=== PATIENT | female | born 1965 | race Caucasian/White ===

== ENCOUNTER 2021-04-30 13:39 | Outpatient (REF) | payer MEDICAID, SELFPAY ==
--- NOTE | ~2021-04-30 | XR_ITS ---
EXAMINATION: XR SHOULDER, LEFT CLINICAL INFORMATION: Cervical radiculopathy. COMPARISON: None TECHNIQUE: AP external rotation, Grashey, scapular Y, and axillary views of the left shoulder. FINDINGS: Small acromioclavicular marginal osteophytes. No glenohumeral joint space narrowing or marginal osteophytes. No osseous erosion. No fracture or dislocation. No abnormal soft tissue calcification. XR/XR shoulder LT min 2V IMPRESSION: Mild acromioclavicular osteoarthritis.
== END 2021-04-30 13:40 | disposition home or self-care (01) ==
LOC: HO.XRAY 13:39
PROVIDERS: PCP Family Medicine; Visit Provider Physical Medicine & Rehabilitation
DX: M47.812 Spondylosis without myelopathy or radiculopathy, cervical region (principal)
CPT/HCPCS: 73030

== ENCOUNTER 2021-07-12 10:16 | Emergency (ER) | payer MEDICAID, SELFPAY ==
--- NOTE | ~2021-07-12 | XR_ITS ---
EXAMINATION: XR FOOT, RIGHT CLINICAL INFORMATION: Pain COMPARISON: None TECHNIQUE: AP, lateral, and oblique views of the right foot. FINDINGS: There is fine transverse lucency suggested at base metatarsal. This would be be correlated with patient's symptoms and clinical exam to help differentiate pain nondisplaced hairline fracture versus accentuated trabecular marking. Otherwise, there is no fracture or dislocation. Degenerative changes involving the first MTP joint with joint narrowing and mild subchondral sclerosis and spurring. There is no erosive change. There is borderline plantar calcaneal spur. XR/XR foot RT 2V IMPRESSION: 1. Accentuated trabecular markings versus faint hairline fracture base fifth metatarsal. Recommend correlation with patient's symptoms and clinical exam. 2. Otherwise no fracture or dislocation. 3. Osteoarthritis first MTP.
[2021-07-12 10:23] VITALS: BP 116/92; PULSE 109; RESP 18; TEMP 36.2; O2SAT 98; BMI 25.8
--- NOTE | 2021-07-12 11:02 | ED_ITS ---
HPI - Extremity Problem General Chief complaint: Extremity Problem Stated complaint: rt foot pain Time Seen by Provider: 07/12/21 10:59 Source: patient Mode of arrival: ambulatory Limitations: no limitations History of Present Illness HPI Narrative: 56 y/o female presenting with right foot pain after she missed the last step outside of her home last night. She reports immediate pain to the outside of her right foot, unable to walk on it. She tried to rest and go to bed but the pain woke her up at 1am. She reports the pain worsened all night long and when she tried to get up and walk she couldn't. She noticed swelling to her foot and some slight bruising. She is not on blood thinners. She denies ankle or knee injury. MD Complaint: joint swelling and joint paint Onset (ago): day(s) (1) Pain Consistency: constant Location: right and lower extremity Severity scale (1-10): >10 Quality: stabbing and aching Radiation: proximal Relieving factors: immobilization Exacerbating factors: range of motion, weight bearing and palpation Associated symptoms: denies other symptoms Related Data Previous Rx's Medication Instructions Recorded hydrocodone 5 mg-acetaminophen 325 1 tab PO Q4-6H PRN #8 tab 07/12/21 mg tablet ibuprofen 600 mg tablet 600 mg PO Q8H PRN #20 tab 07/12/21 Allergies Allergy/AdvReac Type Severity Reaction Status Date / Time bee pollen [BEE STINGS] Allergy Mild SWELLING Verified 07/12/21 10:25 Review of Systems Review of Systems: Constitutional: No Fever, No Chills Gastrointestinal: No Nausea, No Vomiting Musculoskeletal: + joint pain, No Myalgias Skin: No Skin Lesions, No rash Neuro: No Weakness, No Numbness Psych: + Anxiety/Panic Heme/Lymph: + Bruising, No Lymphadenopathy PMFSH Past Medical History Medical History (Updated 07/12/21 @ 11:44 by JORGE Pack) No known health problems Social History Social History Advance Directives: No Advance Directives Information Provided: Yes Physical Exam Vital Signs: Vital Signs: Last Vital Signs Temp 97.1 F 07/12/21 10:23 Pulse 109 H 07/12/21 10:23 Resp 18 07/12/21 10:23 BP 116/92 H 07/12/21 10:23 Pulse Ox 98 07/12/21 10:23 Body Mass Index 25.8 Appearance: Alert. Oriented X3. Appears uncomfortable. HEENT: normal inspection CVS: Normal heart rate and rhythm. Pulses normal. Respiratory: No respiratory distress. Skin: Skin warm and dry. Normal skin color. Normal skin turgor. No rashes. Extremities: right foot with moderate swelling to the foot over the 4th and 5th metatarsals with significant tenderness throughout, pain with plantarflexion and dorsiflexion, 2+ DP/PD pulses, warm and well perfused, slight ecchymossis to the lateral foot. mild swelling distal to the lateral malleolus, no malleolar tenderness, pain with ROM of the ankle joint Neuro: Oriented X 3. No motor deficit. No sensory deficit. Unable to assess gait due to pain Course Course Course Narrative: 56 y/o female presenting with right foot pain s/p fall off 1 step last night. Unable to bear weight due to pain with moderate swelling and significant tenderness on exam. XR showing possible hairline fracture at the base of the 5ht metatarsal. Will place in walking boot, provide crutches and have her follow up with Orthopedics. NSAID and Vicoden sent to pharmacy. She is stable for discharge with supportive care and outpatient follow up, patient agrees with plan. Discharge Plan Discharge Clinical Impression: Closed fracture of fifth metatarsal bone Qualifiers: Encounter type: initial encounter Fracture alignment: nondisplaced Laterality: right Qualified Code(s): S92.354A - Nondisplaced fracture of fifth metatarsal bone, right foot, initial encounter for closed fracture Patient Disposition: Home, Self-Care Instructions: Foot Fracture in Adults (ED) Additional Instructions: Your x-ray showed a possible hairline fracture in your foot. Wear the walking boot when ambulating. Elevate your foot when possible. Use ice several times per day for the next 48 hours. You may bear weight as tolerated. If pain is too severe, use crutches until better. Take Motrin and/or Tylenol as needed for pain. Take the prescribed nacotic medication as needed for severe pain No driving Follow up with Orthopedics in 1 week. Prescriptions: New hydrocodone-acetaminophen 5-325 mg tablet 1 tab PO Q4-6H PRN (Reason: pain) Qty: 8 RF: 0 ibuprofen 600 mg tablet 600 mg PO Q8H PRN (Reason: pain) Qty: 20 RF: 0 Referrals: Menilo,Ta-Poppy, PA-C [[facility] [employer]] - 1 week (5th metatarsal fracture)
[2021-07-12] MEDS: HYDROcodone Bit/Acetam 5/325 TABLET 1 TAB PO (11:20)
== END 2021-07-12 11:52 | disposition home or self-care (01) ==
PROVIDERS: Emergency Provider Emergency Medicine; PCP Family Medicine
DX: S92.354A Nondisplaced fracture of fifth metatarsal bone, right foot, initial encounter for closed fracture (principal); M79.671 Pain in right foot; W01.0XXA Fall on same level from slipping, tripping and stumbling without subsequent striking against object, initial encounter; Y93.9 Activity, unspecified; Y92.9 Unspecified place or not applicable; Y99.9 Unspecified external cause status; Z79.899 Other long term (current) drug therapy
CPT/HCPCS: 73620; 99283; 99284

== ENCOUNTER 2021-07-26 07:26 | Outpatient (REF) | payer MEDICAID, SELFPAY ==
--- NOTE | ~2021-07-26 | XR_ITS ---
EXAMINATION: XR FOOT, RIGHT CLINICAL INFORMATION: Foot pain. COMPARISON: 07/12/2021 TECHNIQUE: AP, lateral, and oblique views of the right foot. FINDINGS: Marked degenerative changes present at the 1st metatarsophalangeal joint with loss of joint space, sclerosis, osteophyte formation, and some mild subchondral cyst formation. At the time of the prior study, there was a questionable fracture at the base of the 5th metatarsal. These findings are less apparent on the current study, and there is no evidence of a periosteal reaction which would be indicative of fracture healing. I suspect that this finding may represent accentuated trabecular suspected previously. No other significant abnormalities are seen. XR/XR foot RT min 3V IMPRESSION: Degenerative changes 1st metatarsophalangeal joint. No convincing evidence of an evolving fracture at the base of the 5th metatarsal.
== END 2021-07-26 07:27 | disposition home or self-care (01) ==
LOC: HO.HOSX 07:26
PROVIDERS: Visit Provider Physician Assistant
DX: S92.301A Fracture of unspecified metatarsal bone(s), right foot, initial encounter for closed fracture (principal)
CPT/HCPCS: 73630; 99202

== ENCOUNTER 2021-08-26 07:15 | Outpatient (REF) | payer MEDICAID, SELFPAY ==
--- NOTE | ~2021-08-26 | XR_ITS ---
EXAMINATION: XR FOOT, RIGHT CLINICAL INFORMATION: Pain COMPARISON: Previous x-ray, most recent 07/26/2021 TECHNIQUE: AP, lateral, and oblique views of the right foot. FINDINGS: There are lucencies in the base of the fifth metatarsal bone again questionable for nondisplaced fracture. No other fracture is seen. There is arthritis at the first MTP joint. Joint spaces are otherwise normal. There is a small plantar calcaneal spur. XR/XR foot RT min 3V IMPRESSION: Probable nondisplaced fracture of the base of the fifth metatarsal bone.
== END 2021-08-26 07:16 | disposition home or self-care (01) ==
LOC: HO.HOSX 07:15
PROVIDERS: Visit Provider Physician Assistant
DX: S92.301D Fracture of unspecified metatarsal bone(s), right foot, subsequent encounter for fracture with routine healing (principal)
CPT/HCPCS: 73630; 99212

== ENCOUNTER 2023-02-28 11:25 | Inpatient (IN) | payer OTHER, SELFPAY ==
--- NOTE | ~2023-02-28 | XR_ITS ---
EXAMINATION: XR CHEST CLINICAL INFORMATION: Pain. COMPARISON: None available. TECHNIQUE: Frontal view of the chest was obtained. FINDINGS: No significant abnormality is noted involving the heart, lungs, mediastinum, bony thorax or soft tissues. XR/XR chest 1V IMPRESSION: No acute cardiopulmonary process.
--- NOTE | ~2023-02-28 | XR_ITS ---
EXAMINATION: XR HIP, RIGHT CLINICAL INFORMATION: Pain status post fall. COMPARISON: None available. TECHNIQUE: Two views of the right hip. FINDINGS: Acute, nondisplaced fractures are seen of the right superior and inferior pubic rami. The right hip joint and right hip are intact. The left hemipelvis and left hip are intact. The soft tissues are unremarkable. XR/XR hip RT w PEL1V IMPRESSION: Acute, nondisplaced right superior and inferior pubic rami fractures.
[2023-02-28 11:41] VITALS: BP 140/88; BP 141/85; PULSE 107; PULSE 89; RESP 18; TEMP 36.2; O2SAT 100; BMI 26.8
--- NOTE | 2023-02-28 11:43 | ED.GENADULT ---
HPI - General Adult General Chief complaint: Fall Stated complaint: FALL W/R HIP PAIN WHILE DOING YARD WORK PER EMS Time Seen by Provider: 02/28/23 11:43 Source: patient and EMS Mode of arrival: EMS Limitations: no limitations History of Present Illness HPI narrative: Patient is a 57 year old assigned female at with no reported medical history presenting to the emergency department today with right hip pain. Patient states that she was doing work in her garden and jumped on a shovel, when she slid off and landed on her right hip. Patient states that she immediately had pain and was unable to move the right leg. Patient denies any head strike, loss of consciousness, dizziness, lightheadedness, abdominal pain, nausea, vomiting, fever, chills, blurry vision, double vision, loss of vision, chest pain, difficulty breathing, shortness of breath, back pain, night sweats, pain with urination, increased urinary frequency, increased urinary urgency, blood in her urine or stool, syncope or a near syncopal episode, bowel incontinence, bladder incontinence, bowel retention, bladder retention, or any other complaints at this time. Onset (ago): minute(s) Location: pelvis and right Radiation: non-radiation Severity: moderate Severity scale (1-10): 5 Quality: aching and constant Pain Consistency: constant Relieving factors: none Exacerbating factors: none Associated symptoms: denies other symptoms Treatments prior to arrival: none Related Data Home Medications Medication Instructions Recorded Confirmed buspirone 15 mg tablet 15 mg PO BID 02/28/23 chlorzoxazone 500 mg tablet 500 mg PO TID PRN headache 02/28/23 duloxetine 30 mg capsule,delayed 30 mg PO DAILY 02/28/23 release duloxetine 60 mg capsule,delayed 60 mg PO DAILY 02/28/23 release lorazepam 0.5 mg tablet 0.5 mg PO BID PRN anxiety 02/28/23 omeprazole 20 mg capsule,delayed 20 mg PO DAILY 02/28/23 release tizanidine 2 mg tablet 2 mg PO BEDTIME 02/28/23 tizanidine 4 mg tablet 4 mg PO BEDTIME PRN Muscle Spasm 02/28/23 topiramate 25 mg tablet 100 mg PO BEDTIME 02/28/23 Allergies Allergy/AdvReac Type Severity Reaction Status Date / Time bee pollen [BEE STINGS] Allergy Mild SWELLING Verified 08/26/21 10:47 Review of Systems Constitutional: Constitutional: Reports no additional constitutional complaints, Denies chills, Denies fever(s) and Denies night sweats Eyes: Eyes: Reports no additional eye complaints, Denies blurry vision, Denies change in vision, Denies diplopia, Denies eye discharge, Denies loss of vision and Denies eye pain ENT: Denies dizziness Cardiovascular: Cardiovascular: Reports no additional cardiovascular complaints, Denies chest pain, Denies lightheadedness, Denies Loss of Consciousness and Denies dyspnea Respiratory: Respiratory: Reports no additional respiratory complaints and Denies dyspnea Gastrointestinal: Gastrointestinal: Reports no additional gastrointestinal complaints, Denies abdominal pain, Denies melena, Denies hematochezia, Denies change in bowel habits and Denies change in stool character Genitourinary: Genitourinary: Denies hematuria, Denies urinary frequency, Denies dysuria, Denies urinary incontinence, Denies urinary hesitancy and Denies urinary urgency Musculoskeletal: Musculoskeletal: Reports no additional musculoskeletal complaints, Denies numbness and Denies tingling Comments: right hip pain Neurologic: Denies dizziness, Denies loss of vision, Denies numbness and Denies tingling Psychiatric: Psychiatric: Reports no additional psychiatric complaints Endocrine: Endocrine: Reports no additional endocrine complaints Hematologic/Lymphatic: Hematologic/Lymphatic: Reports no additional hematologic/lymphatic complaints Allergic/Immunologic: Allergic/Immunologic: Reports no additional allergic/immunologic complaints PMFSH Past Medical History Attestation statement: The following information was validated with the patient. Source: old records reviewed and nursing notes reviewed Medical History No known health problems Social History Social History Advance Directives: No Current occupation: rt handed Physical Exam ED Vital Signs: Vital Signs - 24 hr 02/28/23 11:41 02/28/23 13:16 Temperature 97.1 F Pulse Rate 107 H 87 Respiratory Rate 18 16 Blood Pressure 140/88 H 114/76 Pulse Oximetry 99 Oxygen Delivery Method Room Air Room Air BMI result Body Mass Index 26.8 Const General: cooperative, no acute distress, alert and awake Nutritional Appearance: well nourished Orientation/consciousness: patient oriented x3 Limitations: no limitations HENMT Head: Yes normal to inspection and Yes atraumatic Ears: hearing grossly normal bilaterally and external ears normal General nose exam: Normal external nose present, no nasal discharge noted and no epistaxis Face and sinus: Yes normal facial exam, No abrasion and No laceration Mouth: Normal oral and palatal mucosa present, no drooling and no muffled voice Eyes General: appearance normal, both eyes and all related structures Periorbital: periorbital findings normal Eyelids: Yes eyelids normal Conjunctivae: conjunctivae normal Pupils: Equal, round and reactive pupils present EOM: EOMs intact bilaterally Neck Neck: Yes normal visual inspection, Yes full ROM and Yes no lymphadenopathy Chest Chest palpation & inspection: normal inspection of the chest Resp Effort & Inspection: normal respiratory effort and able to speak in complete sentences Auscultation: clear to auscultation bilaterally Cardio Rate: regular rate Rhythm: regular rhythm GI Inspection: Yes normal to inspection Back/Spine/Pelvis Other: pain with palpation of right side of pelvis Neuro General: patient oriented x3 and moves all extremities Cranial nerves: Yes Equal, round and reactive pupils present Cognition (Neuro): normal cognition Motor exam (neuro): 5/5 motor strength present throughout Sensory Exam: Normal double simultaneous stimulation for sensation Coordination: [id number] test normal Extrem General: Yes capillary refill normal Psych Appearance: grossly normal Mental Status: mental status grossly normal Affect: normal affect Attitude: cooperative Thought process: Normal thought process present Thought content: Normal thought content present Insight: Good insight present (Psych) Medications Administered Discontinued Medications Generic Name Dose Route Start Last Admin Trade Name Freq PRN Reason Stop Dose Admin Hydromorphone HCl 1 mg 02/28/23 11:48 02/28/23 12:07 Hydromorphone Hcl 1 Mg/Ml Syringe IVPUSH 02/28/23 11:49 1 mg ONCE ONE Administration Protocol Hydromorphone HCl 1 mg 02/28/23 12:56 02/28/23 13:14 Hydromorphone Hcl 1 Mg/Ml Syringe IVPUSH 02/28/23 12:57 1 mg ONCE ONE Administration Protocol Ondansetron HCl 4 mg 02/28/23 11:48 02/28/23 12:07 Ondansetron Hcl 4 Mg/2 Ml Vial IVPUSH 02/28/23 11:49 4 mg ONCE ONE Administration Medical Decision Making Medical Decision Making MDM Narrative: Patient is a 57 year old assigned female at with no reported medical history presenting to the emergency department today with right hip pain. Patient's physical exam showed pain with palpation of the right pelvis. Patient was given 180mcg of fentanyl prior to arrival and was still in a significant amount of pain when she arrived. I gave the patient 1mg of Dilaudid and the pain persisted. Patient got additional Dilaudid which helped some but the pain continues. Patient's blood work was unremarkable. Patient's right hip and pelvis x-ray showed and inferior and superior pubic rami fracture. I spoke to the orthopedic provider physician relations manager who recommended short term rehab, toe touch weight bearing, and follow up with orthopedics on an out patient basis. I spoke to the hospitalist team who agreed to admission for intractable pain. I explained my physical exam findings as well as all test results to the patient. I answered all questions asked by the patient. I stressed the importance of the patient taking her medication as prescribed. I stressed the importance of the patient following up with her primary care provider and an orthopedic provider. I stressed the importance of the patient returning to the emergency department immediately if her symptoms were to worsen or if she were to develop any dizziness, shortness of breath, difficulty breathing, chest pain, blurry vision, loss of vision, nausea, vomiting, abdominal pain, fever, chills, back pain, or any other complaints. Patient verbalized agreement and understanding with this treatment plan and admission for intractable pain with ultimate end goal of short term rehab. Differential Diagnosis Differential Diagnoses: The differential diagnosis associated with the presentation includes right pelvis fracture Admission/Observation Consideration of admission/observation: Escalation of care including admission/observation considered Consult Healthcare Provider Management of the patient was discussed with: Senior Art Director (spoke to the orthopedic provider as noted in the MDM portion of this chart) Lab Data [facility] Lab Attestation statement: I reviewed the patient's lab results. 02/28/23 12:02 02/28/23 12:02 Labs: Lab Results 02/28/23 02/28/23 02/28/23 Range/Units 12:02 12:02 12:02 WBC 8.4 (4.8-10.8) X10*3/uL RBC 4.86 (4.20-5.50) X10*6/uL Hgb 17.8 H (12.0-16.0) g/dl Hct 50.8 H (37.0-47.0) % MCV 104.5 H (80.0-98.0) fL MCH 36.6 H (27.0-33.0) pg MCHC 35.0 (31.0-35.0) g/dl RDW 13.5 (11.0-16.0) % Plt Count 226 (160-400) X10*3/uL MPV 9.4 (9.4-12.3) fL Immature Gran % (Auto) 0.8 H (0.0-0.4) % Neut % (Auto) 76.6 H (45-73) % Lymph % (Auto) 16.0 L (20-40) % [place] % (Auto) 5.6 (2-11) % Eos % (Auto) 0.5 (0-4) % Baso % (Auto) 0.5 (0-2) % Lymph # (Auto) 1.4 (1.2-4.9) X10*3/uL [place] # (Auto) 0.5 (0.1-1.2) X10*3/uL Eos # (Auto) 0.0 (0.0-0.4) X10*3/uL Baso # (Auto) 0.0 (0.0-0.2) X10*3/uL Abs Immat Gran (auto) 0.07 H (0.00-0.03) X10*3/uL Absolute Neuts (auto) 6.5 (2.0-8.3) x10*3/uL Absolute Nucleated RBC 0.000 (0.0-0.012) X10*3/uL Nucleated RBC % (auto) 0.0 (0.0-0.2) /100WBC PT 10.1 (10.0-13.1) SEC INR 0.9 (0.9-1.1) APTT 35.3 (26.0-36.4) SEC Sodium 140 (135-145) mmol/L Potassium 4.1 (3.3-5.1) mmol/L Chloride 106 (96-108) mmol/L Carbon Dioxide 24 (22-29) mmol/L Anion Gap 14 (12-20) BUN 6 L (9-16) mg/dL Creatinine 0.73 (0.5-1.4) mg/dL Estim Creat Clear Calc 99.8 Estimated GFR > 60 Random Glucose 94 (60-115) mg/dL Calcium 9.2 (8.4-10.2) mg/dL Magnesium 1.8 (1.6-2.6) mg/dL Total Bilirubin 0.8 (0.0-1.0) mg/dL AST 79 H (5-31) U/L ALT 58 H (0-31) U/L Alkaline Phosphatase 133 H (39-117) U/L Total Protein 6.3 L (6.5-8.0) g/dL Albumin 3.4 L (3.5-5.0) g/dL Independent Interpretation I performed an independent interpretation of an: Plain X-Ray Interpretation: My interpretation is in agreement with the radiologist's impression of these imaging studies. EXAMINATION: XR HIP, RIGHT CLINICAL INFORMATION: Pain status post fall. COMPARISON: None available. TECHNIQUE: Two views of the right hip. FINDINGS: Acute, nondisplaced fractures are seen of the right superior and inferior pubic rami. The right hip joint and right hip are intact. The left hemipelvis and left hip are intact. The soft tissues are unremarkable.? XR/XR hip RT w PEL1V IMPRESSION: Acute, nondisplaced right superior and inferior pubic rami fractures. Dictated By: Erik Flood MD Signed By: Electronically signed by Erik Flood MD 02/28/23 [id number] EXAMINATION: XR CHEST CLINICAL INFORMATION: Pain. COMPARISON: None available. TECHNIQUE: Frontal view of the chest was obtained. FINDINGS: No significant abnormality is noted involving the heart, lungs, mediastinum, bony thorax or soft tissues. XR/XR chest 1V IMPRESSION: No acute cardiopulmonary process. Dictated By: Erik Flood MD Signed By: Electronically signed by Erik Flood MD 02/28/23 [id number] Independent Historian Clinical information obtained from an independent historian. History obtained from or confirmed by: EMS Critical Care Time Critical Care Time Critical Care Time: Yes Total Critical Care Time: 45 Attestation: I spent 45 minutes of Critical Care Time with this patient. This does not include time spent on separately reported billable procedures. Discharge Plan Discharge Clinical Impression: Closed pelvic fracture, Intractable pain Patient Disposition: Admitted As Inpatient
--- NOTE | 2023-02-28 11:50 | PC.NURSE ---
Alert and oriented. Arrived from home via EMS. States she was digging up a hosta when she jumped on the shovel causing her to fall and land on her right hip. stated no loc and was on the ground for about 5 minutes before her neighbor found her. states she felt sudden onset of right hip and groin pain. received 180mcg of fent from ems and states no relief from medication. VSS. Moving to room 4
[2023-02-28 12:07] LABS: MANUAL DIFF FLAG NO
[2023-02-28] MEDS: ondansetron HCL 4 MG/2 ML VIAL IVPUSH (12:07)
[2023-02-28] MEDS: HYDROmorphone HCl 1 MG/ML SYRINGE IVPUSH ×5 (12:07→20:26)
[2023-02-28 12:11] LABS: Basophils Percent Auto 0.5 % (0-2); Eosinophils Percent Auto 0.5 % (0-4); Hematocrit 50.8 % (37.0-47.0); Hemoglobin 17.8 g/dl (12.0-16.0); Imm Gran Abs Auto 0.07 X10*3/uL (0.00-0.03); Imm Gran Pct Auto 0.8 % (0.0-0.4); Lymphocytes Absolute Auto 1.4 X10*3/uL (1.2-4.9); Mean Corpuscular Hemoglobin 36.6 pg (27.0-33.0); Mean Corpuscular Volume 104.5 fL (80.0-98.0); Mean Platelet Volume 9.4 fL (9.4-12.3); Monocytes Absolute Auto 0.5 X10*3/uL (0.1-1.2); Monocytes Percent Auto 5.6 % (2-11); Neutrophils Absolute Auto 6.5 x10*3/uL (2.0-8.3); Neutrophils Percent Auto 76.6 % (45-73); Platelet Count 226 X10*3/uL (160-400); Red Blood Count 4.86 X10*6/uL (4.20-5.50); Red Cell Distribution Width 13.5 % (11.0-16.0); White Blood Count 8.4 X10*3/uL (4.8-10.8)
[2023-02-28 12:16] LABS: INTERNATIONAL NORM RATIO 0.9 (0.9-1.1); Prothrombin Time 10.1 SEC (10.0-13.1)
[2023-02-28 12:19] LABS: Partial Thromboplastin Time 35.3 SEC (26.0-36.4)
[2023-02-28 13:02] LABS: Alanine Aminotransferase 58 U/L (0-31); Albumin Level 3.4 g/dL (3.5-5.0); Alkaline Phosphatase 133 U/L (39-117); Anion Gap 14 (12-20); Aspartate Amino Transferase 79 U/L (5-31); Bilirubin Total 0.8 mg/dL (0.0-1.0); Blood Urea Nitrogen 6 mg/dL (9-16); Calcium 9.2 mg/dL (8.4-10.2); Carbon Dioxide 24 mmol/L (22-29); Chloride 106 mmol/L (96-108); Creatinine Clr Calc Pharmacy 99.8; Estimated Glomerular Filt Rate > 60; Glucose Random 94 mg/dL (60-115); Magnesium 1.8 mg/dL (1.6-2.6); Potassium 4.1 mmol/L (3.3-5.1); Sodium 140 mmol/L (135-145); Total Protein 6.3 g/dL (6.5-8.0)
--- NOTE | 2023-02-28 13:11 | MHC.CM.ED ---
Received consult for assessment of d/c needs: Discussed w/ED provider: pt w/significant pain requiring increasing IV pain medication prior to and upon arrival to ED. Provider to admit pt for pain control so that pt may have PT eval and CM consult for ? rehab placement following a fx pelvis. CM consult deferred at this time
[2023-02-28 13:16] VITALS: BP 114/76; PULSE 87; RESP 16; O2SAT 99
[2023-02-28 13:39] VITALS: BP 116/76; PULSE 92; RESP 20; TEMP 37.1; O2SAT 99
--- NOTE | 2023-02-28 13:43 | PHA.MEDREC ---
Pharmacy Consult ? Medication Reconciliation Pharmacy has completed the medication reconciliation.
--- NOTE | 2023-02-28 14:07 | PM.IMHP ---
History of Present Illness Date of Service: 02/28/23 Attending physician on admission: Josie Veliz Chief Complaint: Right hip pain Pt is a 57-year-old female with a PMH significant for?migraines, anxiety, depression, recently diagnosed hiatal hernia, hx of fractured cervical vertebrae in 2019, and hx of meningioma s/p successful recection in 2019 who presents to the ED with?right hip pain after a mechanical fall earlier today. Pt states she was working in her lawn relocating [place] does that had spread up where they were not wanted. This will was dana and the patient found it difficult to shovel, so she decided to jump onto the shovel in order to better dinh the ground. Patient lost her balance and fell on her right hip. Patient immediately spirits to great deal of pain in her right hip and found she could not move her right leg. She did not have her phone on her so she had to wait until she could flag down a passerby who was able to call EMS. Patient has been in a great deal of pain in the ED and received 3 1 mg doses Dilaudid in 3 hours that barely touched her pain. Patient currently complaining of hip and groin pain that she rates a 9.5/10. Denies fever, chills, nausea, vomiting. No abdominal pain. Denies chest pain/pressure, palpitations. Denies shortness of breath. Currently denies numbness and tingling in extremities. No saddle anesthesia or loss of bowel or bladder function. Denies headache, vision changes. In the ED patient was afebrile but tachycardic at 107 and slightly hypertensive at 140/88. Labs were significant for H&H of 17.8/50, MCV 104.5, mild transaminitis of AST 79, ALT 58, alk-phos of 133. Electrolytes normal. Kidney function WNL. Coags WNL. CXR showed no acute cardiopulmonary process. Hip and pelvis x-ray found acute, nondisplaced right superior and inferior pubic rami fractures. Pt was treated with Dilaudid 1 mg IV x3 doses and ondasetron. Pt will be admitted to the hospital for intractable pain secondary to right pubic bone fractures. Review of Systems Review of Systems: Right hip and leg pain, rated 9.5/10 Denies numbness or tingling in extremities No saddle anaesthesia Denies loss of bowel or bladder function Denies chest pain/pressure, palpitations No shortness of breath Denies fever, chills, nausea, vomiting, diarrhea, abdominal pain Yes all other systems are reviewed and are negative [facility] Medical History No known health problems Social History Household Members: None Housing: House Do you presently have visiting nurse or other home services: No Patient Tobacco Use Status: Current everyday Tobacco user Tobacco use type: Cigarette Cigarette Packs Per Day: 0.5 Cigarettes Per Day: 10.0 Smoked in Last 30 Days: Yes Patient Interested in Nicotine Replacement: Yes Use of substances other than those prescribed or required for medical reasons: Yes Substance Use Type: Marijuana Substance Use Frequency: Occasionally Last Used Substance: Days (ago) Currently Displaying Signs/Symptoms of Drug Intoxication Withdrawal: No Any prior treatment program specific to substance use: No Have you been hit, kicked, punched, or otherwise hurt by someone within the past year? If so, by whom?: No Do you feel safe in your current relationship?: No Current Relationship Is there a partner from a previous relationship who is making you feel unsafe now?: No Are you made to feel afraid or neglected: No Advance Directives: No Do you have thoughts of harming others: None Do you have a plan to hurt others: No Plan Recently lost weight without trying: Yes How much weight loss: 34pounds or more Eating poorly because of decreased appetite: Yes Nutrition screen score: 7 Nutrition Risks: No Nutritional Risk Patient : No : No Poor oral hygiene: No Current occupation: rt handed Meds Allergies Allergy/AdvReac Type Severity Reaction Status Date / Time bee pollen [BEE STINGS] Allergy Mild SWELLING Verified 08/26/21 10:47 Active Medications: Current Medications Pharmacy Consult (Consult Rx Perform Med Rec) 1 each MISCELLANE ONCE PRN PRN Reason: Consult order Home Medications Medication Instructions Recorded Confirmed Last Taken Type buspirone 15 mg tablet 15 mg PO BID 02/28/23 02/28/23 02/27/23 History chlorzoxazone 500 mg tablet 500 mg PO TID PRN headache 02/28/23 02/28/23 02/27/23 History duloxetine 30 mg capsule,delayed 30 mg PO DAILY 02/28/23 02/28/23 02/27/23 History release duloxetine 60 mg capsule,delayed 60 mg PO DAILY 02/28/23 02/28/23 02/27/23 History release lorazepam 0.5 mg tablet 0.5 mg PO BID PRN anxiety 02/28/23 02/28/23 02/27/23 History omeprazole 20 mg capsule,delayed 20 mg PO DAILY 02/28/23 02/28/23 02/27/23 History release tizanidine 2 mg tablet 2 mg PO BEDTIME 02/28/23 02/28/23 02/27/23 History tizanidine 4 mg tablet 4 mg PO BEDTIME PRN Muscle Spasm 02/28/23 02/28/23 02/27/23 History topiramate 25 mg tablet 50 mg PO BEDTIME 02/28/23 02/28/23 02/27/23 History trazodone 100 mg tablet 100 mg PO BEDTIME PRN Insomnia 02/28/23 02/28/23 02/27/23 History Physical Exam Vital Signs and Narrative: Vital Signs: Last Vital Signs Temp 98.7 F 02/28/23 13:39 Pulse 92 02/28/23 13:39 Resp 20 02/28/23 13:39 BP 116/76 02/28/23 13:39 Pulse Ox 99 02/28/23 13:39 O2 Del Method Room Air 02/28/23 13:39 BMI result Body Mass Index 26.8 Constitutional: Alert, in no acute distress. Mental Status: Oriented to person, place and time. Eyes: Pupils are equal, round, and reactive to light. Ear, Nose, and Throat: Oropharynx clear, mucous membranes moist. Ears and nose without deformities. Trachea midline. Respiratory: Clear to auscultation bilaterally. No wheezing, rales, or rhonchi. Cardiovascular: S1, S2 regular. No murmurs, rubs, or gallops. Gastrointestinal: Abdomen soft, non-tender, non-distended. Normal bowel sounds. Neurologic: Cranial nerves II-XII are grossly intact bilaterally. No focal neurological deficits. Moves all extremities spontaneously. Sensation to light touch intact of lower leg extremities bilaterally Skin: No rashes or lesions noted. Musculoskeletal: Limited ROM of right leg secondary to pain. Right hip tender to palpation. Extremities: No edema. Psychiatric: Normal mood and affect. Results Labs 02/28/23 12:02 02/28/23 12:02 Labs: Laboratory Results - last 24 hr 02/28/23 02/28/23 02/28/23 12:02 12:02 12:02 MCV 104.5 H MCH 36.6 H MCHC 35.0 RDW 13.5 Plt Count 226 MPV 9.4 Immature Gran % (Auto) 0.8 H Neut % (Auto) 76.6 H Lymph % (Auto) 16.0 L [place] % (Auto) 5.6 Eos % (Auto) 0.5 Baso % (Auto) 0.5 Lymph # (Auto) 1.4 [place] # (Auto) 0.5 Eos # (Auto) 0.0 Baso # (Auto) 0.0 Abs Immat Gran (auto) 0.07 H Absolute Neuts (auto) 6.5 Absolute Nucleated RBC 0.000 Nucleated RBC % (auto) 0.0 PT 10.1 INR 0.9 APTT 35.3 Anion Gap 14 Estim Creat Clear Calc 99.8 Estimated GFR > 60 Random Glucose 94 Calcium 9.2 Magnesium 1.8 Total Bilirubin 0.8 AST 79 H ALT 58 H Alkaline Phosphatase 133 H Total Protein 6.3 L Albumin 3.4 L Imaging Radiologist's Impressions: Impressions Chest X-Ray 02/28/23 12:30 IMPRESSION: No acute cardiopulmonary process. Hip/Pelvis X-Ray 02/28/23 12:30 IMPRESSION: Acute, nondisplaced right superior and inferior pubic rami fractures. Assessment and Plan (1) Closed pelvic fracture: Status: Acute Plan Pt is a 57-year-old female with a PMH significant for?migraines, anxiety, depression, recently diagnosed hiatal hernia, hx of fractured cervical vertebrae in 2020, and hx of meningioma s/p successful recection in 2020 who presents to the ED with?right hip pain after a mechanical fall earlier today. Pt will be admitted to the hospital for intractable pain secondary to right pubic bone fractures. Intractable pain secondary to closed pelvic fracture Hip and pelvis x-ray found acute, nondisplaced right superior and inferior pubic rami fractures Patient with 9.5/10 pain despite multiple doses of 1 mg Dilaudid IV Analgesics for pain management: Dilaudid 1 mg IV q4, oxy p.o. 5 mg q.4 prn, Motrin 400 mg b.i.d. with food Orthopedic consult Patient should be toe-touch weight-bearing on right leg, per Orthopedics PureWick catheter Pt likely will be placed to short term rehab on Thursday Macrocytic polycythemia H&H 17.8/50.8, MCV 104.5 Unclear etiology, unclear if acute or chronic Will check B12, folate Patient receiving IVF Follow CBC Consider heme/onc consult, phlebotomy if remains elevated Transaminitis Patient with mild transaminitis of AST 79, ALT 58, alk-phos 133; bilirubin WNL Patient asymptomatic: No abdominal pain, no nausea, vomiting, diarrhea Will recheck liver panel tomorrow Nicotine dependence Patient smokes about a half a pack+ per day Patch for nicotine replacement therapy Smoking cessation advised Depression, anxiety Continue home meds Migraines Continue home meds Full Code Attending:?Dr. Novak DVT Prophylaxis: Lovenox Pt will require a hospitalization of at least two nights for treatment and further evaluation of?intractable pain secondary to right pubic fractures. Time Spent With Patient Time: Total time managing care of this patient today ____ minutes. Quality Stroke Does the patient have a stroke diagnosis?: No VTE Prior VTE?: No VTE Risk Level:: Medical - moderate - high VTE Device Contraindication: Treatment Not Indicated VTE Drug Contraindication: N/A - Med Ordered
[2023-02-28 15:06] LABS: Folate 3.1 ng/mL (> or = 4.0); Vitamin B12 298 pg/mL (200-900)
[2023-02-28 16:00] VITALS: BP 142/81; PULSE 86; RESP 20; TEMP 36.2; O2SAT 98
[2023-02-28] MEDS: Nicotine 21 MG PATCH.TD24 TRANSDERMA (16:22)
[2023-02-28] MEDS: Enoxaparin Sodium 40 MG/0.4 ML SYRINGE SUBCUT (16:22)
[2023-02-28] MEDS: oxyCODONE HCl Immed Release 5 MG TABLET PO (16:23)
[2023-02-28] MEDS: 0.9 % Sodium Chloride Flush 3 ML SYRINGE IVFLUSH ×2 (16:24→19:35)
[2023-02-28 19:24] VITALS: BP 135/89; PULSE 85; RESP 18; TEMP 36.2; O2SAT 95
[2023-02-28] MEDS: LORazepam 0.5 MG TABLET PO (19:32)
[2023-02-28] MEDS: Topiramate 25 MG TABLET 50 MG PO (19:32)
[2023-02-28] MEDS: TiZANidine HCL 4 MG TABLET 2 MG PO (19:33)
[2023-02-28] MEDS: busPIRone HCl 5 MG TABLET 15 MG PO (19:33)
[2023-03-01] MEDS: HYDROmorphone HCl 1 MG/ML SYRINGE IVPUSH ×7 (00:22→23:28)
[2023-03-01 03:19] VITALS: BP 112/80; PULSE 97; RESP 16; TEMP 36.7; O2SAT 97
[2023-03-01] MEDS: Omeprazole 20 MG CAPSULE.DR PO ×2 (05:13→17:14)
[2023-03-01 06:37] LABS: Hematocrit 47.8 % (37.0-47.0); Hemoglobin 16.4 g/dl (12.0-16.0); Mean Corpuscular HGB Conc 34.3 g/dl (31.0-35.0); Mean Corpuscular Hemoglobin 37.1 pg (27.0-33.0); Mean Corpuscular Volume 108.1 fL (80.0-98.0); Mean Platelet Volume 10.1 fL (9.4-12.3); Platelet Count 198 X10*3/uL (160-400); Red Blood Count 4.42 X10*6/uL (4.20-5.50); Red Cell Distribution Width 13.7 % (11.0-16.0)
[2023-03-01 07:07] VITALS: BP 108/67; PULSE 90; RESP 20; TEMP 36.4; O2SAT 93
[2023-03-01] MEDS: Nicotine 21 MG PATCH.TD24 TRANSDERMA (08:14)
[2023-03-01] MEDS: busPIRone HCl 5 MG TABLET 15 MG PO ×2 (08:15→19:40)
[2023-03-01] MEDS: 0.9 % Sodium Chloride Flush 3 ML SYRINGE IVFLUSH ×3 (08:15→19:47)
[2023-03-01] MEDS: DULoxetine HCl 30 MG CAPSULE.DR PO (08:15)
[2023-03-01] MEDS: DULoxetine HCl 60 MG CAPSULE.DR PO (08:15)
--- NOTE | 2023-03-01 08:24 | PM.EVENT ---
Event Note Date of Service: 03/01/23 Event Note: 57 yo female presented tot he ED with right hip pain, Hip and pelvis x-ray found acute, nondisplaced right superior and inferior pubic rami fractures. patient unable to ambulate with intractable pain. admitted for pain control and placement to rehab facility. xrays reviewed and recommendations are to proceed with protected weight bearing with a walker ( TTWB) and f/u with orthopedics out patient for routine xrays and monitoring of fracture. This was discussed with ED provider over the phone. Time Spent With Patient Time: Total time managing care of this patient today ____ minutes.
[2023-03-01] MEDS: LORazepam 0.5 MG TABLET PO (10:27)
--- NOTE | 2023-03-01 10:28 | P.PNIM_ITS ---
Subjective Subjective Date of Service: 03/01/23 Interval History: complaining of significant amount of pain unable to stand, very difficult to rotate in bed no reported overnight events Review of Systems Review of Systems: Yes all other systems are reviewed and are negative Physical Exam Vital Signs: Vital Signs: Last Vital Signs Temp 97.6 F 03/01/23 07:07 Pulse 90 03/01/23 07:07 Resp 20 03/01/23 07:07 BP 108/67 03/01/23 07:07 Pulse Ox 93 03/01/23 07:07 O2 Del Method Room Air 03/01/23 07:07 BMI result Body Mass Index 26.8 Const: Other: Constitutional : Awake, interactive, discomfortable with movement Neck : Normal inspection, Supple Cardiovascular : RRR, no JVP, no lower extremity edema Respiratory : good bilateral air entry, no crackles, wheezes or rhonchi Gastrointestinal: soft, lax, Normal bowel sounds, Non tender Skin : Warm, Dry Neurological : Alert & oriented x3, No focal deficit Objective Data Active Medications Buspirone HCl (Buspirone Hcl 5 Mg Tablet) 15 mg PO BID [facility] Last Admin: 03/01/23 08:15 Dose: 15 mg Documented By: BETSY Docusate Sodium (Docusate Sodium 100 Mg Capsule) 100 mg PO DAILY PRN PRN Reason: Constipation Duloxetine HCl (Duloxetine Hcl 30 Mg Capsule.Dr) 30 mg PO DAILY [facility] Last Admin: 03/01/23 08:15 Dose: 30 mg Documented By: BETSY Duloxetine HCl (Duloxetine Hcl 60 Mg Capsule.) 60 mg PO DAILY [facility] Last Admin: 03/01/23 08:15 Dose: 60 mg Documented By: BETSY Enoxaparin Sodium (Enoxaparin Sodium 40 Mg/0.4 Ml Syringe) 40 mg SUBCUT Q24H [facility] Last Admin: 02/28/23 16:22 Dose: 40 mg Documented By: BETSY Hydromorphone HCl (Hydromorphone Hcl 1 Mg/Ml Syringe) 1 mg IVPUSH Q3H PRN; Protocol PRN Reason: Pain, Severe (Pain Scale 7-10) Last Admin: 03/01/23 08:14 Dose: 1 mg Documented By: BETSY Lorazepam (Lorazepam 0.5 Mg Tablet) 0.5 mg PO BID PRN PRN Reason: anxiety Last Admin: 03/01/23 10:27 Dose: 0.5 mg Documented By: BETSY Naloxone HCl (Naloxone Hcl Nasal 4 Mg [place]) 4 mg NOSTRILALT ONCE PRN PRN Reason: Opiate Reversal Nicotine (Nicotine 21 Mg Patch.Td24) 21 mg TRANSDERMA DAILY [facility] Last Admin: 03/01/23 08:14 Dose: 21 mg Documented By: BETSY Non-Formulary Medication (Chlorzoxazone) 500 mg PO TID PRN PRN Reason: headache Omeprazole (Omeprazole 20 Mg Capsule.Dr) 20 mg PO DAILY@0630 [facility] Last Admin: 03/01/23 05:13 Dose: 20 mg Documented By: JOMAR Ondansetron HCl (Ondansetron Hcl 4 Mg/2 Ml Vial) 4 mg IVPUSH Q8H PRN PRN Reason: Nausea and Vomiting Oxycodone HCl (Oxycodone Hcl Immed Release 5 Mg Tablet) 5 mg PO Q4H PRN PRN Reason: Pain, Severe (Pain Scale 7-10) Last Admin: 02/28/23 16:23 Dose: 5 mg Documented By: BETSY Pharmacy Consult (Consult Rx Perform Med Rec) 1 each MISCELLANE ONCE PRN PRN Reason: Consult order Sodium Chloride (0.9 % Sodium Chloride Flush 3 Ml Syringe) 3 ml IVFLUSH [facility] Last Admin: 03/01/23 08:15 Dose: 3 ml Documented By: BETSY Tizanidine HCl (Tizanidine Hcl 4 Mg Tablet) 4 mg PO BEDTIME PRN PRN Reason: Muscle Spasm Tizanidine HCl (Tizanidine Hcl 4 Mg Tablet) 2 mg PO BEDTIME [facility] Last Admin: 02/28/23 19:33 Dose: 2 mg Documented By: JOMAR Topiramate (Topiramate 25 Mg Tablet) 50 mg PO BEDTIME [facility] Last Admin: 02/28/23 19:32 Dose: 50 mg Documented By: JOMAR Trazodone HCl (Trazodone Hcl 100 Mg Tablet) 100 mg PO BEDTIME PRN PRN Reason: Insomnia Labs 03/01/23 05:06 02/28/23 12:02 Labs: Laboratory Results - last 24 hr 02/28/23 02/28/23 02/28/23 12:02 12:02 12:02 MCV 104.5 H MCH 36.6 H MCHC 35.0 RDW 13.5 Plt Count 226 MPV 9.4 Immature Gran % (Auto) 0.8 H Neut % (Auto) 76.6 H Lymph % (Auto) 16.0 L [place] % (Auto) 5.6 Eos % (Auto) 0.5 Baso % (Auto) 0.5 Lymph # (Auto) 1.4 [place] # (Auto) 0.5 Eos # (Auto) 0.0 Baso # (Auto) 0.0 Abs Immat Gran (auto) 0.07 H Absolute Neuts (auto) 6.5 Absolute Nucleated RBC 0.000 Nucleated RBC % (auto) 0.0 PT 10.1 INR 0.9 APTT 35.3 Anion Gap 14 Estim Creat Clear Calc 99.8 Estimated GFR > 60 Random Glucose 94 Calcium 9.2 Magnesium 1.8 Total Bilirubin 0.8 AST 79 H ALT 58 H Alkaline Phosphatase 133 H Total Protein 6.3 L Albumin 3.4 L Vitamin B12 298 Folate 3.1 L 03/01/23 05:06 MCV 108.1 H MCH 37.1 H MCHC 34.3 RDW 13.7 Plt Count 198 MPV 10.1 Immature Gran % (Auto) Neut % (Auto) Lymph % (Auto) [place] % (Auto) Eos % (Auto) Baso % (Auto) Lymph # (Auto) [place] # (Auto) Eos # (Auto) Baso # (Auto) Abs Immat Gran (auto) Absolute Neuts (auto) Absolute Nucleated RBC 0.000 Nucleated RBC % (auto) 0.0 PT INR APTT Anion Gap Estim Creat Clear Calc Estimated GFR Random Glucose Calcium Magnesium Total Bilirubin AST ALT Alkaline Phosphatase Total Protein Albumin Vitamin B12 Folate Assessment and Plan (1) Closed pelvic fracture: Status: Acute (2) Intractable pain: Status: Acute Plan Pt is a 57-year-old female with a PMH significant for?migraines, anxiety, depression, recently diagnosed hiatal hernia, hx of fractured cervical vertebrae in 2019, and hx of meningioma s/p successful recection in 2020 who presents to the ED with?right hip pain after a mechanical fall earlier today. Pt will be admitted to the hospital for intractable pain secondary to right pubic bone fractures. Intractable pain secondary to closed pelvic fracture Hip and pelvis x-ray found acute, nondisplaced right superior and inferior pubic rami fractures PRN Dilaudid IV oxy p.o. 5 mg q.4 prn, Motrin 400 mg b.i.d. with food Orthopedic input appreciated, protected weight bearing with walker , TTWB and OP follow up PT eval Macrocytic polycythemia likey related to smoking hx normal B12, low folate diluted with IVF Follow CBC OP work up with PCP Transaminitis mild transaminitis of AST 79, ALT 58, alk-phos 133; bilirubin WNL Patient asymptomatic: No abdominal pain, no nausea, vomiting, diarrhea Will recheck liver panel tomorrow Nicotine dependence Patient smokes about a half a pack+ per day Patch for nicotine replacement therapy Smoking cessation advised Depression, anxiety Continue home meds Migraines Continue home meds Full Code DVT Prophylaxis: Lovenox Pt will require a hospitalization overnight for treatment and further evaluation of?intractable pain secondary to right pubic fractures. Time Spent With Patient Time: Total time managing care of this patient today ____ minutes. Quality Stroke Does the patient have a stroke diagnosis?: No VTE Prior VTE?: No VTE Risk Level:: Medical - moderate - high VTE Device Contraindication: Treatment Not Indicated VTE Drug Contraindication: N/A - Med Ordered
[2023-03-01] MEDS: ondansetron HCL 4 MG/2 ML VIAL IVPUSH (10:32)
--- NOTE | 2023-03-01 11:05 | MHC.CM.PN ---
Addendum entered by Viviana Mann 03/01/23 16:13: PER DISCUSSION WITH PT, REFERRALS WERE MADE BASED ON HER INSURANCE. 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
[2023-03-01 14:58] VITALS: BP 124/77; PULSE 86; RESP 18; TEMP 36.6; O2SAT 97
[2023-03-01] MEDS: Enoxaparin Sodium 40 MG/0.4 ML SYRINGE SUBCUT (15:58)
[2023-03-01] MEDS: Docusate Sodium 100 MG CAPSULE PO (15:59)
[2023-03-01] MEDS: Ibuprofen 400 MG TABLET PO (17:14)
[2023-03-01] MEDS: oxyCODONE HCl Immed Release 5 MG TABLET PO (17:59)
[2023-03-01] MEDS: Topiramate 25 MG TABLET 50 MG PO (19:40)
[2023-03-01] MEDS: Acetaminophen 325 MG TABLET 975 MG PO (19:40)
[2023-03-01] MEDS: TiZANidine HCL 4 MG TABLET 2 MG PO (19:41)
[2023-03-01 19:48] VITALS: BP 118/73; PULSE 91; RESP 18; TEMP 36.2; O2SAT 95
[2023-03-01] MEDS: traZODone HCL 100 MG TABLET PO (23:27)
[2023-03-02] MEDS: HYDROmorphone HCl 1 MG/ML SYRINGE IVPUSH ×5 (02:45→21:28)
[2023-03-02 03:33] VITALS: BP 102/68; PULSE 78; RESP 16; TEMP 36.2; O2SAT 96
[2023-03-02] MEDS: LORazepam 0.5 MG TABLET PO (04:11)
[2023-03-02] MEDS: Omeprazole 20 MG CAPSULE.DR PO ×2 (04:13→16:02)
[2023-03-02 07:11] VITALS: BP 114/71; PULSE 68; RESP 18; TEMP 36.3; O2SAT 97
[2023-03-02] MEDS: 0.9 % Sodium Chloride Flush 3 ML SYRINGE IVFLUSH ×3 (07:32→21:32)
[2023-03-02] MEDS: Nicotine 21 MG PATCH.TD24 TRANSDERMA (07:32)
[2023-03-02] MEDS: Ibuprofen 400 MG TABLET PO ×3 (07:33→16:02)
[2023-03-02] MEDS: DULoxetine HCl 60 MG CAPSULE.DR PO (07:34)
[2023-03-02] MEDS: busPIRone HCl 5 MG TABLET 15 MG PO ×2 (07:34→21:28)
[2023-03-02] MEDS: Acetaminophen 325 MG TABLET 975 MG PO ×3 (07:34→21:29)
[2023-03-02] MEDS: DULoxetine HCl 30 MG CAPSULE.DR PO (07:34)
[2023-03-02] MEDS: oxyCODONE HCl Immed Release 5 MG TABLET PO ×2 (09:57→14:00)
[2023-03-02 11:10] VITALS: PULSE 94; O2SAT 94
--- NOTE | 2023-03-02 11:12 | P.PNIM_ITS ---
Subjective Subjective Date of Service: 03/02/23 Interval History: Still complaining of significant amount of pain unable to stand, very difficult to rotate in bed no reported overnight events Review of Systems Review of Systems: Yes all other systems are reviewed and are negative Physical Exam Vital Signs: Vital Signs: Last Vital Signs Temp 97.4 F 03/02/23 07:11 Pulse 68 03/02/23 07:11 Resp 18 03/02/23 07:11 BP 114/71 03/02/23 07:11 Pulse Ox 97 03/02/23 07:11 O2 Del Method Room Air 03/02/23 07:11 O2 Flow Rate 97 03/01/23 14:58 BMI result Body Mass Index 26.8 Const: Other: Constitutional : Awake, interactive, discomfortable with movement Neck : Normal inspection, Supple Cardiovascular : RRR, no JVP, no lower extremity edema Respiratory : good bilateral air entry, no crackles, wheezes or rhonchi Gastrointestinal: soft, lax, Normal bowel sounds, Non tender Skin : Warm, Dry Neurological : Alert & oriented x3, No focal deficit Objective Data Active Medications Acetaminophen (Acetaminophen 325 Mg Tablet) 975 mg PO TID [facility] Last Admin: 03/02/23 07:34 Dose: 975 mg Documented By: BETSY Buspirone HCl (Buspirone Hcl 5 Mg Tablet) 15 mg PO BID [facility] Last Admin: 03/02/23 07:34 Dose: 15 mg Documented By: BETSY Docusate Sodium (Docusate Sodium 100 Mg Capsule) 100 mg PO DAILY PRN PRN Reason: Constipation Last Admin: 03/01/23 15:59 Dose: 100 mg Documented By: BETSY Duloxetine HCl (Duloxetine Hcl 30 Mg Capsule.) 30 mg PO DAILY [facility] Last Admin: 03/02/23 07:34 Dose: 30 mg Documented By: BETSY Duloxetine HCl (Duloxetine Hcl 60 Mg Capsule.) 60 mg PO DAILY [facility] Last Admin: 03/02/23 07:34 Dose: 60 mg Documented By: BETSY Enoxaparin Sodium (Enoxaparin Sodium 40 Mg/0.4 Ml Syringe) 40 mg SUBCUT Q24H [facility] Last Admin: 03/01/23 15:58 Dose: 40 mg Documented By: BETSY Hydromorphone HCl (Hydromorphone Hcl 1 Mg/Ml Syringe) 1 mg IVPUSH Q3H PRN; Protocol PRN Reason: Pain, Severe (Pain Scale 7-10) Last Admin: 03/02/23 07:35 Dose: 1 mg Documented By: BETSY Ibuprofen (Ibuprofen 400 Mg Tablet) 400 mg PO TIDWM [facility] Last Admin: 03/02/23 07:33 Dose: 400 mg Documented By: BETSY Lorazepam (Lorazepam 0.5 Mg Tablet) 0.5 mg PO BID PRN PRN Reason: anxiety Last Admin: 03/02/23 04:11 Dose: 0.5 mg Documented By: JOMAR Naloxone HCl (Naloxone Hcl Nasal 4 Mg [place]) 4 mg NOSTRILALT ONCE PRN PRN Reason: Opiate Reversal Nicotine (Nicotine 21 Mg Patch.Td24) 21 mg TRANSDERMA DAILY [facility] Last Admin: 03/02/23 07:32 Dose: 21 mg Documented By: BETSY Non-Formulary Medication (Chlorzoxazone) 500 mg PO TID PRN PRN Reason: headache Omeprazole (Omeprazole 20 Mg Capsule.Dr) 20 mg PO BID@0630,1630 [facility] Last Admin: 03/02/23 04:13 Dose: 20 mg Documented By: JOMAR Ondansetron HCl (Ondansetron Hcl 4 Mg/2 Ml Vial) 4 mg IVPUSH Q8H PRN PRN Reason: Nausea and Vomiting Last Admin: 03/01/23 10:32 Dose: 4 mg Documented By: BETSY Oxycodone HCl (Oxycodone Hcl Immed Release 5 Mg Tablet) 5 mg PO Q4H PRN PRN Reason: Pain, Severe (Pain Scale 7-10) Last Admin: 03/02/23 09:57 Dose: 5 mg Documented By: BETSY Pharmacy Consult (Consult Rx Perform Med Rec) 1 each MISCELLANE ONCE PRN PRN Reason: Consult order Sodium Chloride (0.9 % Sodium Chloride Flush 3 Ml Syringe) [facility] Last Admin: 03/02/23 07:32 Dose: 3 ml Documented By: BETSY Tizanidine HCl (Tizanidine Hcl 4 Mg Tablet) 4 mg PO BEDTIME PRN PRN Reason: Muscle Spasm Tizanidine HCl (Tizanidine Hcl 4 Mg Tablet) 2 mg PO BEDTIME [facility] Last Admin: 03/01/23 19:41 Dose: 2 mg Documented By: JOMAR Topiramate (Topiramate 25 Mg Tablet) 50 mg PO BEDTIME [facility] Last Admin: 03/01/23 19:40 Dose: 50 mg Documented By: JOMAR Trazodone HCl (Trazodone Hcl 100 Mg Tablet) 100 mg PO BEDTIME PRN PRN Reason: Insomnia Last Admin: 03/01/23 23:27 Dose: 100 mg Documented By: JOMAR Labs 03/01/23 05:06 02/28/23 12:02 Assessment and Plan (1) Closed pelvic fracture: Status: Acute (2) Intractable pain: Status: Acute Plan Pt is a 57-year-old female with a PMH significant for?migraines, anxiety, depression, recently diagnosed hiatal hernia, hx of fractured cervical vertebrae in 2019, and hx of meningioma s/p successful resection in 2019 who presents to the ED with?right hip pain after a mechanical fall earlier today. Pt will be admitted to the hospital for intractable pain secondary to right pubic bone fractures. Intractable pain secondary to closed pelvic fracture Hip and pelvis x-ray found acute, nondisplaced right superior and inferior pubic rami fractures PRN Dilaudid IV oxy p.o. 5 mg q.4 prn, Tylenol, Motrin 400 mg tid with food Orthopedic input appreciated, protected weight bearing with walker , TTWB and OP follow up pending PT eval Macrocytic polycythemia likey related to smoking hx normal B12, low folate diluted with IVF Follow CBC OP work up with PCP Transaminitis mild transaminitis of AST 79, ALT 58, alk-phos 133; bilirubin WNL Patient asymptomatic: No abdominal pain, no nausea, vomiting, diarrhea recheck liver panel Nicotine dependence Patient smokes about a half a pack+ per day Patch for nicotine replacement therapy Smoking cessation advised Depression, anxiety Continue home meds Migraines Continue home meds Full Code DVT Prophylaxis: Lovenox Pt will require a hospitalization overnight for treatment and further evaluation of?intractable pain secondary to right pubic fractures pending better pain control and safe discharge plan Time Spent With Patient Time: Total time managing care of this patient today ____ minutes. Quality Stroke Does the patient have a stroke diagnosis?: No VTE Prior VTE?: No VTE Risk Level:: Medical - moderate - high VTE Device Contraindication: Treatment Not Indicated VTE Drug Contraindication: N/A - Med Ordered
--- NOTE | 2023-03-02 13:38 | MHC.CM.PN ---
physical therapy [facility]
--- NOTE | 2023-03-02 14:12 | MHC.CM.PN ---
[facility] has clinically accepted pt pending ins auth and an ot eval
[2023-03-02 15:10] VITALS: BP 114/65; PULSE 80; RESP 18; TEMP 36.2; O2SAT 98
[2023-03-02] MEDS: Enoxaparin Sodium 40 MG/0.4 ML SYRINGE SUBCUT (16:01)
[2023-03-02] MEDS: Docusate Sodium 100 MG CAPSULE PO (16:02)
[2023-03-02 19:41] VITALS: BP 128/83; PULSE 96; RESP 18; TEMP 36.4; O2SAT 98
[2023-03-02] MEDS: Topiramate 25 MG TABLET 50 MG PO (21:29)
[2023-03-02] MEDS: TiZANidine HCL 4 MG TABLET 2 MG PO (21:30)
[2023-03-03] MEDS: HYDROmorphone HCl 1 MG/ML SYRINGE IVPUSH (01:56)
[2023-03-03] MEDS: traZODone HCL 100 MG TABLET PO ×2 (02:21→20:29)
[2023-03-03 04:00] VITALS: BP 110/62; PULSE 72; RESP 18; TEMP 36.3; O2SAT 97
[2023-03-03] MEDS: Omeprazole 20 MG CAPSULE.DR PO ×2 (05:42→15:48)
[2023-03-03 06:28] LABS: Alanine Aminotransferase 32 U/L (0-31); Alkaline Phosphatase 110 U/L (39-117); Aspartate Amino Transferase 40 U/L (5-31); Bilirubin Direct 0.3 mg/dL (0.0-0.5); Bilirubin Total 0.6 mg/dL (0.0-1.0); Total Protein 5.4 g/dL (6.5-8.0)
[2023-03-03 07:40] VITALS: BP 110/69; PULSE 80; RESP 16; TEMP 35.9; O2SAT 98
[2023-03-03] MEDS: Acetaminophen 325 MG TABLET 975 MG PO ×3 (08:46→20:28)
[2023-03-03] MEDS: DULoxetine HCl 60 MG CAPSULE.DR PO (08:46)
[2023-03-03] MEDS: Ibuprofen 400 MG TABLET PO ×3 (08:46→16:26)
[2023-03-03] MEDS: HYDROmorphone HCl 1 MG/ML SYRINGE 0.5 MG IVPUSH ×4 (08:46→19:45)
[2023-03-03] MEDS: DULoxetine HCl 30 MG CAPSULE.DR PO (08:46)
[2023-03-03] MEDS: busPIRone HCl 5 MG TABLET 15 MG PO ×2 (08:47→20:27)
[2023-03-03] MEDS: polyethylene glycoL 3350 17 GM POWD.PACK PO ×2 (10:57→20:31)
[2023-03-03] MEDS: 0.9 % Sodium Chloride Flush 3 ML SYRINGE IVFLUSH ×3 (10:57→20:29)
--- NOTE | 2023-03-03 11:14 | HO.PM.IMPN ---
Subjective Subjective Date of Service: 03/03/23 Interval History: Still complaining of significant amount of pain but overall better controlled able to participate with PT today decrease the need of pain meds no reported overnight events Review of Systems Review of Systems: Yes all other systems are reviewed and are negative Physical Exam Vital Signs: Vital Signs: Last Vital Signs Temp 96.7 F L 03/03/23 07:40 Pulse 80 03/03/23 07:40 Resp 16 03/03/23 07:40 BP 110/69 03/03/23 07:40 Pulse Ox 98 03/03/23 07:40 O2 Del Method Room Air 03/03/23 07:40 O2 Flow Rate 97 03/01/23 14:58 BMI result Body Mass Index 26.8 Const: Other: Constitutional : Awake, interactive, discomfortable with movement Neck : Normal inspection, Supple Cardiovascular : RRR, no JVP, no lower extremity edema Respiratory : good bilateral air entry, no crackles, wheezes or rhonchi Gastrointestinal: soft, lax, Normal bowel sounds, Non tender Skin : Warm, Dry Neurological : Alert & oriented x3, No focal deficit Objective Data Active Medications Acetaminophen (Acetaminophen 325 Mg Tablet) 975 mg PO TID [facility] Last Admin: 03/03/23 08:46 Dose: 975 mg Documented By: IAM Buspirone HCl (Buspirone Hcl 5 Mg Tablet) 15 mg PO BID [facility] Last Admin: 03/03/23 08:47 Dose: 15 mg Documented By: IAM Docusate Sodium (Docusate Sodium 100 Mg Capsule) 100 mg PO DAILY PRN PRN Reason: Constipation Last Admin: 03/02/23 16:02 Dose: 100 mg Documented By: BETSY Duloxetine HCl (Duloxetine Hcl 30 Mg Capsule.) 30 mg PO DAILY [facility] Last Admin: 03/03/23 08:46 Dose: 30 mg Documented By: IAM Duloxetine HCl (Duloxetine Hcl 60 Mg Capsule.) 60 mg PO DAILY [facility] Last Admin: 03/03/23 08:46 Dose: 60 mg Documented By: IAM Enoxaparin Sodium (Enoxaparin Sodium 40 Mg/0.4 Ml Syringe) 40 mg SUBCUT Q24H [facility] Last Admin: 03/02/23 16:01 Dose: 40 mg Documented By: BETSY Hydromorphone HCl (Hydromorphone Hcl 1 Mg/Ml Syringe) 0.5 mg IVPUSH Q3H PRN; Protocol PRN Reason: Pain, Severe (Pain Scale 7-10) Last Admin: 03/03/23 08:46 Dose: 0.5 mg Documented By: IAM Ibuprofen (Ibuprofen 400 Mg Tablet) 400 mg PO TIDWM [facility] Last Admin: 03/03/23 08:46 Dose: 400 mg Documented By: IAM Lorazepam (Lorazepam 0.5 Mg Tablet) 0.5 mg PO BID PRN PRN Reason: anxiety Last Admin: 03/02/23 04:11 Dose: 0.5 mg Documented By: JOMAR Naloxone HCl (Naloxone Hcl Nasal 4 Mg [place]) 4 mg NOSTRILALT ONCE PRN PRN Reason: Opiate Reversal Nicotine (Nicotine 21 Mg Patch.Td24) 21 mg TRANSDERMA DAILY [facility] Last Admin: 03/03/23 08:53 Dose: Not Given Documented By: IAM Non-Admin Reason: Patient Refused Non-Formulary Medication (Chlorzoxazone) 500 mg PO TID PRN PRN Reason: headache Omeprazole (Omeprazole 20 Mg Capsule.Dr) 20 mg PO BID@0630,1630 [facility] Last Admin: 03/03/23 05:42 Dose: 20 mg Documented By: BILLY Ondansetron HCl (Ondansetron Hcl 4 Mg/2 Ml Vial) 4 mg IVPUSH Q8H PRN PRN Reason: Nausea and Vomiting Last Admin: 03/01/23 10:32 Dose: 4 mg Documented By: BETSY Oxycodone HCl (Oxycodone Hcl Immed Release 5 Mg Tablet) 5 mg PO Q4H PRN PRN Reason: Pain, Severe (Pain Scale 7-10) Last Admin: 03/02/23 14:00 Dose: 5 mg Documented By: SUSANNAH Pharmacy Consult (Consult Rx Perform Med Rec) 1 each MISCELLANE ONCE PRN PRN Reason: Consult order Polyethylene Glycol (Polyethylene Glycol 3350 17 Gm Powd.Pack) 17 gm PO BID [facility] Last Admin: 03/03/23 10:57 Dose: 17 gm Documented By: IAM Sodium Chloride (0.9 % Sodium Chloride Flush 3 Ml Syringe) 3 ml IVFLUSH QSHIFT [facility] Last Admin: 03/03/23 10:57 Dose: 3 ml Documented By: IAM Tizanidine HCl (Tizanidine Hcl 4 Mg Tablet) 4 mg PO BEDTIME PRN PRN Reason: Muscle Spasm Tizanidine HCl (Tizanidine Hcl 4 Mg Tablet) 2 mg PO BEDTIME [facility] Last Admin: 03/02/23 21:30 Dose: 2 mg Documented By: BILLY Topiramate (Topiramate 25 Mg Tablet) 50 mg PO BEDTIME [facility] Last Admin: 03/02/23 21:29 Dose: 50 mg Documented By: BILLY Trazodone HCl (Trazodone Hcl 100 Mg Tablet) 100 mg PO BEDTIME PRN PRN Reason: Insomnia Last Admin: 03/03/23 02:21 Dose: 100 mg Documented By: BILLY Labs 03/01/23 05:06 02/28/23 12:02 Labs: Laboratory Results - last 24 hr 03/03/23 05:41 Total Bilirubin 0.6 Direct Bilirubin 0.3 AST 40 H ALT 32 H Alkaline Phosphatase 110 Total Protein 5.4 L Albumin 3.0 L Assessment and Plan (1) Closed pelvic fracture: Status: Acute (2) Intractable pain: Status: Acute (3) Transaminitis: Status: Acute Plan Pt is a 57-year-old female with a PMH significant for?migraines, anxiety, depression, recently diagnosed hiatal hernia, hx of fractured cervical vertebrae in 2019, and hx of meningioma s/p successful resection in 2019 who presents to the ED with?right hip pain after a mechanical fall earlier today. Pt will be admitted to the hospital for intractable pain secondary to right pubic bone fractures. Intractable pain secondary to closed pelvic fracture Hip and pelvis x-ray found acute, nondisplaced right superior and inferior pubic rami fractures PRN Dilaudid IV, decreased to 0.5 mg oxy p.o. 5 mg q.4 prn, Tylenol, Motrin 400 mg tid with food Orthopedic input appreciated, protected weight bearing with walker , TTWB and OP follow up pending PT eval Macrocytic polycythemia likey related to smoking hx normal B12, low folate diluted with IVF Follow CBC OP work up with PCP Transaminitis likely related to fall and muscle injury trending down Nicotine dependence Patient smokes about a half a pack+ per day Patch for nicotine replacement therapy Smoking cessation advised Depression, anxiety Continue home meds Migraines Continue home meds Full Code DVT Prophylaxis: Lovenox Pt will require a hospitalization overnight for treatment and further evaluation of?intractable pain secondary to right pubic fractures pending better pain control and safe discharge plan Time Spent With Patient Time: Total time managing care of this patient today ____ minutes. Quality Stroke Does the patient have a stroke diagnosis?: No VTE Prior VTE?: No VTE Risk Level:: Medical - moderate - high VTE Device Contraindication: Treatment Not Indicated VTE Drug Contraindication: N/A - Med Ordered
[2023-03-03] MEDS: oxyCODONE HCl Immed Release 5 MG TABLET PO ×3 (11:28→20:28)
[2023-03-03 15:48] VITALS: BP 107/73; PULSE 84; RESP 18; TEMP 36.3; O2SAT 96
[2023-03-03] MEDS: Enoxaparin Sodium 40 MG/0.4 ML SYRINGE SUBCUT (15:48)
[2023-03-03 19:35] VITALS: BP 118/68; PULSE 70; RESP 18; TEMP 36.5; O2SAT 98
[2023-03-03] MEDS: TiZANidine HCL 4 MG TABLET 2 MG PO (20:27)
[2023-03-03] MEDS: Topiramate 25 MG TABLET 50 MG PO (20:28)
[2023-03-03] MEDS: LORazepam 0.5 MG TABLET PO (20:29)
[2023-03-04] MEDS: HYDROmorphone HCl 1 MG/ML SYRINGE 0.5 MG IVPUSH ×7 (00:38→21:39)
[2023-03-04 03:39] VITALS: BP 110/62; PULSE 77; RESP 18; TEMP 36.4; O2SAT 97
[2023-03-04] MEDS: oxyCODONE HCl Immed Release 5 MG TABLET PO ×5 (03:59→23:07)
[2023-03-04] MEDS: Omeprazole 20 MG CAPSULE.DR PO ×2 (05:21→15:41)
[2023-03-04 07:15] VITALS: BP 110/71; PULSE 77; RESP 20; TEMP 36.1; O2SAT 96
[2023-03-04] MEDS: Ibuprofen 400 MG TABLET PO ×3 (08:01→17:05)
[2023-03-04] MEDS: Acetaminophen 325 MG TABLET 975 MG PO ×3 (08:01→21:37)
[2023-03-04] MEDS: Folic Acid 1 MG TABLET PO (08:01)
[2023-03-04] MEDS: Cyanocobalamin (Vitamin B-12) 1,000 MCG TABLET 1000 MCG PO (08:02)
[2023-03-04] MEDS: busPIRone HCl 5 MG TABLET 15 MG PO ×2 (08:02→21:37)
[2023-03-04] MEDS: DULoxetine HCl 30 MG CAPSULE.DR PO (08:02)
[2023-03-04] MEDS: DULoxetine HCl 60 MG CAPSULE.DR PO (08:02)
[2023-03-04] MEDS: polyethylene glycoL 3350 17 GM POWD.PACK PO ×2 (08:03→21:37)
[2023-03-04 08:11] LABS: Hematocrit 45.4 % (37.0-47.0); Hemoglobin 15.6 g/dl (12.0-16.0); Mean Corpuscular HGB Conc 34.4 g/dl (31.0-35.0); Mean Corpuscular Hemoglobin 37.4 pg (27.0-33.0); Mean Corpuscular Volume 108.9 fL (80.0-98.0); Platelet Count 212 X10*3/uL (160-400); Red Blood Count 4.17 X10*6/uL (4.20-5.50); Red Cell Distribution Width 13.2 % (11.0-16.0); White Blood Count 5.4 X10*3/uL (4.8-10.8)
[2023-03-04 08:26] LABS: Alanine Aminotransferase 26 U/L (0-31); Albumin Level 2.8 g/dL (3.5-5.0); Alkaline Phosphatase 102 U/L (39-117); Anion Gap 10 (12-20); Aspartate Amino Transferase 26 U/L (5-31); Bilirubin Direct 0.2 mg/dL (0.0-0.5); Bilirubin Total 0.4 mg/dL (0.0-1.0); Blood Urea Nitrogen 7 mg/dL (9-16); Calcium 8.9 mg/dL (8.4-10.2); Carbon Dioxide 29 mmol/L (22-29); Chloride 107 mmol/L (96-108); Creatinine Clr Calc Pharmacy 97.2; Estimated Glomerular Filt Rate > 60; Glucose Random 86 mg/dL (60-115); Sodium 141 mmol/L (135-145); Total Protein 5.4 g/dL (6.5-8.0)
[2023-03-04] MEDS: 0.9 % Sodium Chloride Flush 3 ML SYRINGE IVFLUSH ×3 (09:01→21:40)
--- NOTE | 2023-03-04 09:57 | P.PNIM_ITS ---
Subjective Subjective Date of Service: 03/04/23 Interval History: able to ambulate with walker Physical Exam Vital Signs: Vital Signs: Last Vital Signs Temp 96.9 F 03/04/23 07:15 Pulse 77 03/04/23 07:15 Resp 20 03/04/23 07:15 BP 110/71 03/04/23 07:15 Pulse Ox 96 03/04/23 07:15 O2 Del Method Room Air 03/04/23 07:15 O2 Flow Rate 97 03/01/23 14:58 BMI result Body Mass Index 26.8 General: AO X 3, no acute distress Resp: CTA bilateral, no accessory muscles used CVS: S1,S2,RRR GI: soft, non tender, non distended Neuro: motor grossly intact, alert Psych: appropriate affect, appropriate insight Objective Data Active Medications Acetaminophen (Acetaminophen 325 Mg Tablet) 975 mg PO TID [facility] Last Admin: 03/04/23 08:01 Dose: 975 mg Documented By: JYOTI Buspirone HCl (Buspirone Hcl 5 Mg Tablet) 15 mg PO BID [facility] Last Admin: 03/04/23 08:02 Dose: 15 mg Documented By: JYOTI Cyanocobalamin (Cyanocobalamin (Vitamin B-12) 1,000 Mcg Tablet) 1,000 mcg PO DAILY [facility] Last Admin: 03/04/23 08:02 Dose: 1,000 mcg Documented By: JYOTI Docusate Sodium (Docusate Sodium 100 Mg Capsule) 100 mg PO DAILY PRN PRN Reason: Constipation Last Admin: 03/02/23 16:02 Dose: 100 mg Documented By: BETSY Duloxetine HCl (Duloxetine Hcl 30 Mg Capsule.) 30 mg PO DAILY [facility] Last Admin: 03/04/23 08:02 Dose: 30 mg Documented By: JYOTI Duloxetine HCl (Duloxetine Hcl 60 Mg Capsule.) 60 mg PO DAILY [facility] Last Admin: 03/04/23 08:02 Dose: 60 mg Documented By: JYOTI Enoxaparin Sodium (Enoxaparin Sodium 40 Mg/0.4 Ml Syringe) 40 mg SUBCUT Q24H [facility] Last Admin: 03/03/23 15:48 Dose: 40 mg Documented By: RHONDA Folic Acid (Folic Acid 1 Mg Tablet) 1 mg PO DAILY [facility] Last Admin: 03/04/23 08:01 Dose: 1 mg Documented By: JYOTI Hydromorphone HCl (Hydromorphone Hcl 1 Mg/Ml Syringe) 0.5 mg IVPUSH Q3H PRN; Protocol PRN Reason: Pain, Severe (Pain Scale 7-10) Last Admin: 03/04/23 08:27 Dose: 0.5 mg Documented By: JYOTI Ibuprofen (Ibuprofen 400 Mg Tablet) 400 mg PO TIDWM [facility] Last Admin: 03/04/23 08:01 Dose: 400 mg Documented By: JYOTI Lorazepam (Lorazepam 0.5 Mg Tablet) 0.5 mg PO BID PRN PRN Reason: anxiety Last Admin: 03/03/23 20:29 Dose: 0.5 mg Documented By: RHONDA Naloxone HCl (Naloxone Hcl Nasal 4 Mg [place]) 4 mg NOSTRILALT ONCE PRN PRN Reason: Opiate Reversal Nicotine (Nicotine 21 Mg Patch.Td24) 21 mg TRANSDERMA DAILY [facility] Last Admin: 03/04/23 09:08 Dose: Not Given Documented By: JYOTI Non-Admin Reason: Patient Refused Non-Formulary Medication (Chlorzoxazone) 500 mg PO TID PRN PRN Reason: headache Omeprazole (Omeprazole 20 Mg Capsule.Dr) 20 mg PO BID@0630,1630 [facility] Last Admin: 03/04/23 05:21 Dose: 20 mg Documented By: RHONDA Ondansetron HCl (Ondansetron Hcl 4 Mg/2 Ml Vial) 4 mg IVPUSH Q8H PRN PRN Reason: Nausea and Vomiting Last Admin: 03/01/23 10:32 Dose: 4 mg Documented By: BETSY Oxycodone HCl (Oxycodone Hcl Immed Release 5 Mg Tablet) 5 mg PO Q4H PRN PRN Reason: Pain, Severe (Pain Scale 7-10) Last Admin: 03/04/23 09:03 Dose: 5 mg Documented By: JYOTI Pharmacy Consult (Consult Rx Perform Med Rec) 1 each MISCELLANE ONCE PRN PRN Reason: Consult order Polyethylene Glycol (Polyethylene Glycol 3350 17 Gm Powd.Pack) 17 gm PO BID [facility] Last Admin: 03/04/23 08:03 Dose: 17 gm Documented By: JYOTI Sodium Chloride (0.9 % Sodium Chloride Flush 3 Ml Syringe) 3 ml IVFLUSH QSHIFT [facility] Last Admin: 03/04/23 09:01 Dose: 3 ml Documented By: JYOTI Tizanidine HCl (Tizanidine Hcl 4 Mg Tablet) 4 mg PO BEDTIME PRN PRN Reason: Muscle Spasm Tizanidine HCl (Tizanidine Hcl 4 Mg Tablet) 2 mg PO BEDTIME [facility] Last Admin: 03/03/23 20:27 Dose: 2 mg Documented By: RHONDA Topiramate (Topiramate 25 Mg Tablet) 50 mg PO BEDTIME [facility] Last Admin: 03/03/23 20:28 Dose: 50 mg Documented By: RHONDA Trazodone HCl (Trazodone Hcl 100 Mg Tablet) 100 mg PO BEDTIME PRN PRN Reason: Insomnia Last Admin: 03/03/23 20:29 Dose: 100 mg Documented By: RHONDA Labs 03/04/23 07:49 03/04/23 07:49 Labs: Laboratory Results - last 24 hr 03/04/23 03/04/23 07:49 07:49 MCV 108.9 H MCH 37.4 H MCHC 34.4 RDW 13.2 Plt Count 212 MPV 10.0 Absolute Nucleated RBC 0.000 Nucleated RBC % (auto) 0.0 Anion Gap 10 L Estim Creat Clear Calc 97.2 Estimated GFR > 60 Random Glucose 86 Calcium 8.9 Total Bilirubin 0.4 Direct Bilirubin 0.2 AST 26 ALT 26 Alkaline Phosphatase 102 Total Protein 5.4 L Albumin 2.8 L Assessment and Plan (1) Closed pelvic fracture: Status: Acute (2) Intractable pain: Status: Acute (3) Transaminitis: Status: Acute Plan 57F PMH significant for?migraines, anxiety, depression, recently diagnosed hiatal hernia, hx of fractured cervical vertebrae in 2020, and hx of meningioma s/p successful resection in 2020 who presented to the ED with?right hip pain af ter a mechanical fall, admitted to the hospital for intractable pain secondary to right pubic bone fractures. closed pelvic fracture Hip and pelvis x-ray found acute, nondisplaced right superior and inferior pubic rami fractures PRN Dilaudid IV, decreased to 0.5 mg oxy p.o. 5 mg q.4 prn, Tylenol, Motrin 400 mg tid with food Orthopedic input appreciated, protected weight bearing with walker , TTWB and OP follow up plan for rehab Macrocytic polycythemia likey related to smoking hx, dehydation low- normal B12, low folate start folic acid and b12 supplement Transaminitis resolved Nicotine dependence Patient smokes about a half a pack+ per day Patch for nicotine replacement therapy Smoking cessation advised Depression, anxiety cymbalta, buspar Migraines topamax, stable Full Code DVT Prophylaxis: Lovenox reason for continued hospitalization:awaiting placement Time Spent With Patient Time: Total time managing care of this patient today ____ minutes. Quality Stroke Does the patient have a stroke diagnosis?: No VTE Prior VTE?: No VTE Risk Level:: Medical - moderate - high VTE Device Contraindication: Treatment Not Indicated VTE Drug Contraindication: N/A - Med Ordered
--- NOTE | 2023-03-04 12:38 | MHC.CM.PN ---
per rounds pt ready for dc awaiting ins auth for [facility]
[2023-03-04] MEDS: LORazepam 0.5 MG TABLET PO ×2 (12:53→21:38)
[2023-03-04 15:00] VITALS: BP 111/70; PULSE 74; RESP 18; TEMP 36.3; O2SAT 97
[2023-03-04] MEDS: Enoxaparin Sodium 40 MG/0.4 ML SYRINGE SUBCUT (15:41)
[2023-03-04 19:31] VITALS: BP 128/77; PULSE 75; RESP 18; TEMP 36.4; O2SAT 100
[2023-03-04] MEDS: traZODone HCL 100 MG TABLET PO (21:38)
[2023-03-04] MEDS: TiZANidine HCL 4 MG TABLET 2 MG PO (21:38)
[2023-03-04] MEDS: Docusate Sodium 100 MG CAPSULE PO (21:38)
[2023-03-04] MEDS: Topiramate 25 MG TABLET 50 MG PO (21:38)
[2023-03-05] MEDS: HYDROmorphone HCl 1 MG/ML SYRINGE 0.5 MG IVPUSH ×3 (03:20→10:47)
[2023-03-05 04:00] VITALS: BP 107/60; PULSE 75; RESP 16; TEMP 37; O2SAT 97
[2023-03-05 04:42] VITALS: BP 98/62; PULSE 86; RESP 14; TEMP 36.4; O2SAT 100
[2023-03-05] MEDS: Omeprazole 20 MG CAPSULE.DR PO ×2 (05:29→14:36)
[2023-03-05] MEDS: oxyCODONE HCl Immed Release 5 MG TABLET PO ×3 (05:29→14:36)
[2023-03-05 07:39] VITALS: BP 120/72; PULSE 67; RESP 16; TEMP 36.1; O2SAT 98
[2023-03-05 07:46] VITALS: RESP 20
[2023-03-05] MEDS: busPIRone HCl 5 MG TABLET 15 MG PO (07:46)
[2023-03-05] MEDS: DULoxetine HCl 60 MG CAPSULE.DR PO (07:46)
[2023-03-05] MEDS: LORazepam 0.5 MG TABLET PO (07:46)
[2023-03-05] MEDS: 0.9 % Sodium Chloride Flush 3 ML SYRINGE IVFLUSH (07:46)
[2023-03-05] MEDS: DULoxetine HCl 30 MG CAPSULE.DR PO (07:46)
[2023-03-05] MEDS: Docusate Sodium 100 MG CAPSULE PO (07:46)
[2023-03-05] MEDS: polyethylene glycoL 3350 17 GM POWD.PACK PO (07:47)
[2023-03-05] MEDS: Acetaminophen 325 MG TABLET 975 MG PO ×2 (07:47→14:36)
[2023-03-05] MEDS: Folic Acid 1 MG TABLET PO (07:47)
[2023-03-05] MEDS: Cyanocobalamin (Vitamin B-12) 1,000 MCG TABLET 1000 MCG PO (07:47)
[2023-03-05] MEDS: Ibuprofen 400 MG TABLET PO ×2 (07:47→10:54)
[2023-03-05] MEDS: bisacodyL 5 MG TABLET.DR 10 MG PO (09:12)
--- NOTE | 2023-03-05 10:17 | P.DS_ITS ---
DS: Providers Provider Date of Service: 03/05/23 Date of admission: 02/28/23 15:25 Primary care physician: Bill Gallagher MD Consults: 02/28/23 15:30 Consult to Orthopedics Routine Consulting Provider: [facility] Reason for consultation: Inferior and superior pubic rami fracture DS: Diagnosis Discharge Diagnosis (1) Closed pelvic fracture: Status: Acute (2) Intractable pain: Status: Acute (3) Transaminitis: Status: Acute DS: Summary Hospital Course Hospital Course: from intial hpi: 57-year-old female with a PMH significant for?migraines, anxiety, depression, recently diagnosed hiatal hernia, hx of fractured cervical vertebrae in 2019, and hx of meningioma s/p successful recection in 2019 who presents to the ED with?right hip pain after a mechanical fall earlier today. Pt states she was working in her lawn relocating [place] does that had spread up where they were not wanted.? This will was dana and the patient found it difficult to shovel, so she decided to jump onto the shovel in order to better dinh the ground.? Patient lost her balance and fell on her right hip.? Patient immediately spirits to great deal of pain in her right hip and found she could not move her right leg.? She did not have her phone on her so she had to wait until she could flag down a passerby who was able to call EMS.? Patient has been in a great deal of pain in the ED and received 3 1 mg doses Dilaudid in 3 hours that barely touched her pain.? Patient currently complaining of hip and groin pain that she rates a 9.5/10.? Denies fever, chills, nausea, vomiting.? No abdominal pain.? Denies chest pain/pressure, palpitations.? Denies shortness of breath.? Currently denies numbness and tingling in extremities.? No saddle anesthesia or loss of bowel or bladder function.? Denies headache, vision changes. ? In the ED patient was afebrile but tachycardic at 107 and slightly hypertensive at 140/88. Labs were significant for H&H of 17.8/50, MCV 104.5, mild transaminitis of AST 79, ALT 58, alk-phos of 133.? Electrolytes normal.? Kidney function WNL.? Coags WNL. CXR showed no acute cardiopulmonary process.? Hip and pelvis x-ray found acute, nondisplaced right superior and inferior pubic rami fractures. Pt was treated with Dilaudid 1 mg IV x3 doses and ondasetron. Pt will be admitted to the hospital for intractable pain secondary to right pubic bone fractures. hospital course: patient was admitted for mechanical fall complicated by closed pelvic fracture and intractable pain. was treated with iv opiates and transitioned to po oxy. was seen by ortho who recommended protected weight bearing with walker and outpaitent follow up . was seen by PT who recommended acute rehab. noted to have macrocytic polycythemia. likely related to smoking and dehydration. hgb did decreased with hydration. noted to have b12 and folate defeciency, started on supplement. she had transaminitis on admission which resolved. for nicotine dependence smoking cessation recommended. for depression and anxiety was continued on cymbalta and buspar. for migraines was conitnued on topamax. patient will be discharged to acute rehab. Time Spent with Patient Time attestation: Total time managing care of this patient today ____ minutes. Discharge coordination time: Greater than 30 minutes Quality: Safe Use of Opioids Does Pt have an Active Cancer Diagnosis on the Problem List?: No Quality: Stroke Does the patient have a stroke diagnosis?: No Physical Exam Vital Signs: Vital Signs: Last Vital Signs Temp 97.0 F 03/05/23 07:39 Pulse 67 03/05/23 07:39 Resp 20 03/05/23 07:46 BP 120/72 03/05/23 07:39 Pulse Ox 98 03/05/23 07:39 O2 Del Method Room Air 03/05/23 07:39 O2 Flow Rate 97 03/01/23 14:58 BMI result Body Mass Index 26.8 General: AO X 3, no acute distress Resp: CTA bilateral, no accessory muscles used CVS: S1,S2,RRR GI: soft, non tender, non distended Neuro: motor grossly intact, alert Psych: appropriate affect, appropriate insight Discharge Plan Discharge Anticipated Discharge Date/Time: 03/05/23 09:57 Patient Disposition: Xfer Acute Care Hospital Discharge Diagnosis: pelvic fracture Referrals: Bill Gallagher MD [Primary Care Provider] - 1 Week Discharge Medications: New cyanocobalamin (vitamin B-12) [Vitamin B-12] 1,000 mcg Tablet 1,000 mcg PO DAILY Qty: 30 0RF folic acid 1 mg Tablet 1 mg PO DAILY Qty: 30 0RF oxycodone 5 mg Tablet 5 mg PO Q4H PRN (Reason: Pain, Severe (Pain Scale 7-10)) Qty: 15 0RF Rx Instructions: Partial Fill upon patient request. Continued tizanidine 2 mg tablet 2 mg PO BEDTIME tizanidine 4 mg tablet 4 mg PO BEDTIME PRN (Reason: Muscle Spasm) chlorzoxazone 500 mg tablet 500 mg PO TID PRN (Reason: headache) topiramate 25 mg tablet 50 mg PO BEDTIME lorazepam 0.5 mg tablet 0.5 mg PO BID PRN (Reason: anxiety) omeprazole 20 mg capsule,delayed release(DR/EC) 20 mg PO DAILY buspirone 15 mg tablet 15 mg PO BID duloxetine 30 mg capsule,delayed release(DR/EC) 30 mg PO DAILY Rx Instructions: TAKE WITH 60 MG CAPS FOR TOTAL OF 90 MG duloxetine 60 mg capsule,delayed release(DR/EC) 60 mg PO DAILY Rx Instructions: TAKE WITH 30 MG CAPS FOR TOTAL FOR 90 MG DAILY trazodone 100 mg Tablet 100 mg PO BEDTIME PRN (Reason: Insomnia) Discharge Orders: Discharge Order (Routine); Ordered 03/05/23 Ordered By: Flo Gastelum Diet: Advance to usual diet Activity on Discharge: As tolerated Stand Alone Forms: Patient Portal Discharge page Care Plan Goals: recovery Health Concerns: pelvic fracture Plan of Treatment: rehab, vitamin replacement Assessment: see above
[2023-03-05 10:43] VITALS: BP 120/72; PULSE 67; O2SAT 98
[2023-03-05 10:47] VITALS: RESP 19
[2023-03-05] MEDS: Enoxaparin Sodium 40 MG/0.4 ML SYRINGE SUBCUT (14:36)
== END 2023-03-05 14:52 | disposition short-term general hospital (02) | DRG 536 ==
LOC: HO.ED 13:13 → HO.EDOVER 15:35 → HO.S3 15:44
PROVIDERS: Physician Assistant Medical; Student in an Organized Health Care Education/Training Program; Admitting Provider Student in an Organized Health Care Education/Training Program; Emergency Provider Emergency Medicine Emergency Medical Services; PCP Family Medicine; Visit Provider Internal Medicine
DX: S32.511A Fracture of superior rim of right pubis, initial encounter for closed fracture (principal); S32.591A Other specified fracture of right pubis, initial encounter for closed fracture; G43.909 Migraine, unspecified, not intractable, without status migrainosus; F41.9 Anxiety disorder, unspecified; F32.A Depression, unspecified; W19.XXXA Unspecified fall, initial encounter; D75.1 Secondary polycythemia; F17.210 Nicotine dependence, cigarettes, uncomplicated; Z71.6 Tobacco abuse counseling; Z79.899 Other long term (current) drug therapy
CPT/HCPCS: 36415; 71045; 73502; 80048; 80053; 80076; 82607; 82746; 83735; 85025; 85027; 85610; 85730; 97110; 97116; 97161; 97165; 97530; 97535; 99285; J1170; J1650; J2405

== ENCOUNTER 2023-04-02 06:34 | Outpatient (REF) | payer OTHER, SELFPAY ==
--- NOTE | ~2023-04-02 | XR_ITS ---
EXAMINATION: XR PELVIS CLINICAL INFORMATION: Hip pain. COMPARISON: Right hip study of 02/28/2023 TECHNIQUE: AP view of the pelvis. FINDINGS: There are again noted to be superior and inferior pubic rami fractures with some callus formation. No significant change in alignment is seen. Fracture lines are still evident with some diminished bone density. No diastases of the pelvis is identified. Bilateral hip joint spaces are maintained. There is bilateral facet arthropathy at L5-S1. XR/XR pelvis 1-2V IMPRESSION: Healing right superior and inferior pubic rami fractures.
== END 2023-04-02 06:35 | disposition home or self-care (01) ==
LOC: HO.HOSX 06:34
PROVIDERS: Visit Provider Physician Assistant
DX: S32.511D Fracture of superior rim of right pubis, subsequent encounter for fracture with routine healing (principal); W19.XXXD Unspecified fall, subsequent encounter
CPT/HCPCS: 72170

== ENCOUNTER 2023-05-14 07:49 | Outpatient (REF) | payer OTHER, SELFPAY ==
--- NOTE | ~2023-05-14 | XR_ITS ---
EXAMINATION: XR PELVIS CLINICAL INFORMATION: Pain COMPARISON: 04/02/2023 TECHNIQUE: AP view of the pelvis. FINDINGS: Redemonstration of the right superior and inferior pubic rami fractures. Evidence of partial healing with increased callus formation at the fracture sites. The pubic symphysis remains aligned. The sacroiliac joints are symmetric. The hips are well aligned. Normal bowel gas pattern. XR/XR pelvis 1-2V IMPRESSION: Partial healing of the right superior and inferior pubic rami fractures.
== END 2023-05-14 07:50 | disposition home or self-care (01) ==
LOC: HO.HOSX 07:49
PROVIDERS: Visit Provider Physician Assistant
DX: S32.519D Fracture of superior rim of unspecified pubis, subsequent encounter for fracture with routine healing (principal)
CPT/HCPCS: 72170

== ENCOUNTER 2023-05-14 13:01 | Outpatient (AMB) | payer OTHER, SELFPAY ==
--- NOTE | 2023-05-14 13:17 | MHC.OFFVIS ---
Intake Vital Signs 05/14/23 13:23 Height 5 ft 9 in Weight 177 lb BMI 26.1 Intake Visit Reasons: OV-Inferior and superior pubic rami fx, 02/28/23 Intake Note: Rafiq a 58 year old female who presents today for a follow up of inferior and superior pubic rami fx, DOI 02/28/23. Patient reports a constant burning sensation. Finds little relief with celebrex. States just finished in home therapy. Allergies bee pollen [BEE STINGS] Allergy (Mild, Verified 05/14/23 13:23) SWELLING HPI OV-Inferior and superior pubic rami fx, 02/28/23 HPI Details 58-year-old female who returns to the office today for a follow-up of inferior and superior pubic rami fracture, 02/28/23. She states she has a constant burning sensation in her hip. She finds mild relief with Celebrex. She is completed with her home therapy. [facility] Medical History (Updated 05/14/23 @ 13:21 by SHERRIE Walsh) Anxiety and depression History of brain tumor History of hypothyroidism No known health problems Surgical History Hx of brain surgery Social History (Updated 04/02/23 @ 13:53 by SHERRIE Walsh) Household Members: None Housing: House Do you presently have visiting nurse or other home services: No Patient Tobacco Use Status: Former Tobacco user Cigarette Packs Per Day: 0.5 Cigarettes Per Day: 10.0 Substance Use Type: Marijuana service: No Current occupational status: unemployed Current occupation: rt handed Review of Systems Const All systems reviewed & are unremarkable except as noted in HPI and below Physical Exam Vital Signs: BMI result Body Mass Index 26.1 Extrem Other: Right hip: Normal to inspection. No pain with ROM of hip. She does have slight discomfort with hip flexion and extension. Calf supple, nontender. NVI. Results Reviewed Results Reviewed: X-rays of the pelvis obtained in the office today show mildly displaced right superior pubic rami fracture with some interval healing and an inferior pubic rami fracture with interval healing. Assessment & Plan Assessment & Plan (1) Fracture of superior pubic ramus: Code(s): S32.519A - Fracture of superior rim of unspecified pubis, initial encounter for closed fracture (2) Inferior pubic ramus fracture: Code(s): S32.599A - Other specified fracture of unspecified pubis, initial encounter for closed fracture Plan She will begin a course of outpatient physical therapy to work on ROM, strengthening and gait training. She does have an appointment with a hse specialist for her radiculopathy on her LLE. She will me back in 6 weeks with new x-rays, sooner if needed. Orders: Orders XR pelvis 1-2V Today M25.559 - Pain in unspecified hip PT Evaluation and Treatment Today S32.519A - Fracture of superior rim of unspecified pubis, initial encounter for closed fracture, S32.599A - Other specified fracture of unspecified pubis, initial encounter for closed fracture Patient Instructions: Scribed for Yisel Payan PA-C, by Grayson Kendall medical physics researcher, on 05/14/2023 at 1:00 PM EST. I, Yisel Payan PA-C, have personally reviewed and agree with the information entered by the scribe. Coding Level of Care Code Global (23692) Diagnoses Fracture of superior pubic ramus S32.519A Inferior pubic ramus fracture S32.599A
[2023-05-14 13:23] VITALS: BMI 26.1
== END 2023-05-14 13:41 | disposition home or self-care (01) ==
PROVIDERS: PCP Family Medicine; Visit Provider Physician Assistant
DX: S32.511A Fracture of superior rim of right pubis, initial encounter for closed fracture (principal); S32.591A Other specified fracture of right pubis, initial encounter for closed fracture
CPT/HCPCS: 99214

== ENCOUNTER 2023-06-29 10:54 | Outpatient (REF) | payer OTHER, SELFPAY ==
--- NOTE | ~2023-06-29 | XR_ITS ---
EXAMINATION: XR PELVIS CLINICAL INFORMATION: Pain in unspecified hip COMPARISON: 05/14/2023 TECHNIQUE: AP view of the pelvis. FINDINGS: Redemonstration of healing right superior and inferior pubic rami fractures with increased callus formation at the fracture site. Sacroiliac joints are symmetric. Hip joint spaces are preserved. XR/XR pelvis 1-2V IMPRESSION: Partial healing of right superior and inferior pubic rami fractures.
== END 2023-06-29 10:55 | disposition home or self-care (01) ==
LOC: HO.HOSX 10:54
PROVIDERS: Visit Provider Physician Assistant
DX: S32.511D Fracture of superior rim of right pubis, subsequent encounter for fracture with routine healing (principal); S32.591D Other specified fracture of right pubis, subsequent encounter for fracture with routine healing; X58.XXXD Exposure to other specified factors, subsequent encounter
CPT/HCPCS: 72170

== ENCOUNTER 2023-06-29 10:54 | Outpatient (AMB) | payer OTHER, SELFPAY ==
--- NOTE | 2023-06-29 11:04 | A.OFFVIS_ITS ---
Intake Vital Signs 06/29/23 11:08 Height 5 ft 9 in Weight 177 lb BMI 26.1 Intake Visit Reasons: OV-Inferior and superior pubic rami fx, 02/28/23 Intake Note: Rafiq a 58 year old female who presents today for a follow up of inferior and superior pubic rami fx, DOI 02/28/23, states she has not started P.T but continues to do home exercise at home. States she has pain in B/L groin especially when walking. Allergies bee pollen [BEE STINGS] Allergy (Mild, Verified 06/29/23 11:08) SWELLING HPI OV-Inferior and superior pubic rami fx, 02/28/23 HPI Details 58-year-old female who returns to the [facility] today for a follow-up of pubic rami fracture, 02/28/23. She continues to have pain in her bilateral groin region which is aggravated with ambulation. She has not started with physical therapy but she continues to do exercises at home. [facility] Medical History (Updated 06/29/23 @ 12:18 by Yisel Payan PA-C) History of hypothyroidism Anxiety and depression History of brain tumor No known health problems Surgical History Hx of brain surgery Social History Household Members: None Housing: House Do you presently have visiting nurse or other home services: No Patient Tobacco Use Status: Former Tobacco user Cigarette Packs Per Day: 0.5 Cigarettes Per Day: 10.0 Substance Use Type: Marijuana service: No Current occupational status: unemployed Current occupation: rt handed Review of Systems Const All systems reviewed & are unremarkable except as noted in HPI and below Physical Exam Vital Signs: BMI result Body Mass Index 26.1 Extrem Other: Right hip: Normal to inspection. No pain with ROM of hip. She does have slight discomfort with hip flexion and extension. Calf supple, nontender. NVI. Results Reviewed Results Reviewed: X-rays of the pelvis obtained in the office today show mildly displaced right superior pubic rami fracture with some interval healing and an inferior pubic rami fracture with interval healing. Assessment & Plan Assessment & Plan (1) Fracture of superior pubic ramus: Code(s): S32.519A - Fracture of superior rim of unspecified pubis, initial encounter for closed fracture Qualifiers: Encounter type: subsequent encounter Fracture type: closed Laterality: right Fracture healing: with routine healing Qualified Code(s): S32.511D - Fracture of superior rim of right pubis, subsequent encounter for fracture with routine healing (2) Inferior pubic ramus fracture: Code(s): S32.599A - Other specified fracture of unspecified pubis, initial encounter for closed fracture Qualifiers: Encounter type: initial encounter Fracture type: closed Laterality: right Qualified Code(s): S32.591A - Other specified fracture of right pubis, initial encounter for closed fracture Plan She will increase activity as tolerated. We did review some exercises she can work out at home to help strengthen her glute, hip and hamstring muscles. If symptoms persist or worsens, patient will contact the office, otherwise follow- up as needed. Orders: Orders XR pelvis 1-2V Today M25.559 - Pain in unspecified hip Patient Instructions: Scribed for Yisel Payan PA-C, by Grayson Kendall medical sales consultant, on 06/29/2023 at 11:00 AM FLORINDA. Yisel Aceves PA-C, have personally reviewed and agree with the information entered by the scribe. Coding Level of Care Code Est Pt Level 3 (02130) Diagnoses Closed fracture of superior ramus of right pubis with routine healing, subsequent encounter S32.511D Encounter type: subsequent encounter Fracture type: closed Laterality: right Fracture healing: with routine healing Closed fracture of right inferior pubic ramus, initial encounter S32.591A Encounter type: initial encounter Fracture type: closed Laterality: right
[2023-06-29 11:08] VITALS: BMI 26.1
== END 2023-06-29 12:02 | disposition home or self-care (01) ==
PROVIDERS: PCP Family Medicine; Visit Provider Physician Assistant
DX: S32.511D Fracture of superior rim of right pubis, subsequent encounter for fracture with routine healing (principal); S32.591A Other specified fracture of right pubis, initial encounter for closed fracture
CPT/HCPCS: 99213

== ENCOUNTER 2024-05-26 20:15 | Emergency (ER) | payer OTHER, SELFPAY ==
--- NOTE | ~2024-05-26 | US_ITS ---
EXAMINATION: US VENOUS WITH DOPPLER UPPER EXTREMITY, LEFT CLINICAL INFORMATION: Left arm pain, swelling, discoloration. Status post IV puncture. COMPARISON: None available. TECHNIQUE: Ultrasound of the upper extremity is performed using compression sonography and color and pulse Doppler flow with assessment of augmentation of flow. There is also imaging and Doppler assessment of the jugular and subclavian veins. Spectral analysis with color-flow imaging is performed. FINDINGS: Respiratory variation, normal compression, and augmented flow are noted throughout the upper extremity including the axillary, brachial, cubital, and radial and ulnar veins. There is normal flow in the internal jugular and subclavian veins. There is no visible deep or superficial thrombophlebitis. If the patient's symptoms progress, a followup ultrasound in 5-7 days might be of value to exclude proximal propagation from a nonvisualized distal arm vein. US/US venous duplex UE LT IMPRESSION: No DVT demonstrated in the left upper extremity.
[2024-05-26 20:24] VITALS: BP 141/86; PULSE 104; RESP 16; TEMP 36.6; O2SAT 100; BMI 28.9
--- NOTE | 2024-05-26 20:24 | ED.EXTPRO ---
HPI - Extremity Problem General Chief complaint: Skin/Abscess/Foreign Body Stated complaint: reaction to reclast infusion? Time Seen by Provider: 05/26/24 22:06 Source: patient Mode of arrival: ambulatory Limitations: no limitations History of Present Illness ED Provider: nancy CABRERA Narrative: Patient received for the 1st time reclast infusion on 05/23 2 days after the patient noticed pain and redness at the site of the infusion also complaining of headache with light sensitivity with history of migraine in the past no fever no chills Related Data Home Medications ?Medication ?Instructions ?Recorded ?Confirmed chlorzoxazone 500 mg tablet 500 mg PO TID PRN headache 02/28/23 02/28/23 duloxetine 30 mg capsule,delayed 30 mg PO DAILY 02/28/23 02/28/23 release duloxetine 60 mg capsule,delayed 60 mg PO DAILY 02/28/23 02/28/23 release lorazepam 0.5 mg tablet 0.5 mg PO BID PRN anxiety 02/28/23 02/28/23 tizanidine 2 mg tablet 2 mg PO BEDTIME 02/28/23 02/28/23 tizanidine 4 mg tablet 4 mg PO BEDTIME PRN Muscle Spasm 02/28/23 02/28/23 trazodone 100 mg tablet 100 mg PO BEDTIME PRN Insomnia 02/28/23 02/28/23 polyethylene glycol 3350 17 17 g PO DAILY PRN constipation 04/02/23 gram/dose oral powder (ClearLax) gabapentin 400 mg capsule mg PO 05/14/23 Previous Rx's ?Medication ?Instructions ?Recorded celecoxib 200 mg capsule (Celebrex) 200 mg PO BID 30 days #60 caps 05/04/23 bsefirawoh-dyzfmtprqxipe-tmzzopkz 1 tab PO Q6H PRN haeadace #20 tabs 05/27/24 50 mg-325 mg-40 mg tablet cephalexin 500 mg capsule 500 mg PO QID 10 days #40 caps 05/27/24 doxycycline hyclate 100 mg tablet 100 mg PO BID #20 tabs 05/27/24 Allergies Allergy/AdvReac Type Severity Reaction Status Date / Time bee pollen [BEE STINGS] Allergy Mild SWELLING Verified 05/26/24 20:27 Review of Systems Review of Systems: Yes all other systems are reviewed and are negative PMFSH Past Medical History Medical History History of hypothyroidism Anxiety and depression History of brain tumor No known health problems Surgical History Hx of brain surgery Social History Social History Household Members: None Housing: House Do you presently have visiting nurse or other home services: No Patient Tobacco Use Status: Former Tobacco user Cigarette Packs Per Day: 0.5 Cigarettes Per Day: 10.0 Smoked in Last 30 Days: Yes Use of substances other than those prescribed or required for medical reasons: Yes Substance Use Type: Marijuana Advance Directives: No Advance Directives Information Provided: No Do you have a plan to hurt others: No Plan service: No Current occupational status: unemployed Current occupation: rt handed Physical Exam Vital Signs: Vital Signs: Last Vital Signs Temp 97.6 F 05/27/24 00:00 Pulse 93 05/27/24 00:00 Resp 18 05/27/24 00:00 BP 118/75 05/27/24 00:00 Pulse Ox 97 05/27/24 00:00 O2 Del Method Room Air 05/27/24 00:00 BMI result Body Mass Index 28.9 Appearance: Alert. Oriented X3. No acute distress. Eyes: No pallor or icterus ENT: Pharynx normal. Oral Mucosa moist Neck: Normal inspection. Neck supple. CVS: Normal heart rate and rhythm. Pulses normal. Respiratory: No respiratory distress. Equal air entry bilateral, no wheezing/rales/rhonchi Abdomen: Soft and nontender. Bowel sounds are present, no mass palpable, no CVA tenderness Skin: Skin warm and dry. Erythematous area at the site of infusion about 10x10 cm no deeper abscess Normal skin turgor. Extremities: No lower extremity edema. No calf tenderness Neuro: Oriented X 3. No motor deficit. No sensory deficit.No cerebellar signs , cranial nerves II-XII intact Course Course Course Narrative: This is a Rapid Medical Examination (RME) performed by Brady De La Cruz PA-C in triage. Full HPI, ROS, assessment and treatment plan per primary provider in the Main ED. 59 yo female with history of osteoporosis s/p Reclast infusion on 05/23 presents to the ER for evaluation of new onset left upper extremity swelling and pain that started today. Area is warm to touch, swollen and erythematous. heat pack applied. Plan: RUE doppler Medications Administered Discontinued Medications Generic Name Dose Route Start Last Admin Trade Name Marysol PRN Reason Stop Dose Admin Acetaminophen 975 mg 05/26/24 21:51 05/26/24 21:54 Acetaminophen 325 Mg Tablet PO 05/26/24 21:52 975 mg ONCE ONE Administration Doxycycline Monohydrate 100 mg 05/26/24 23:38 05/27/24 00:05 Doxycycline Monohydrate 100 Mg Capsule PO 05/26/24 23:39 100 mg ONCE ONE Administration Hydromorphone HCl 2 mg 05/26/24 22:19 05/26/24 22:43 Hydromorphone Hcl 2 Mg/Ml Vial IVPUSH 05/26/24 22:20 2 mg ONCE ONE Administration Protocol Hydromorphone HCl 1 mg 05/26/24 23:38 05/27/24 00:04 Hydromorphone Hcl 1 Mg/Ml Syringe IVPUSH 05/26/24 23:39 1 mg ONCE ONE Administration Protocol Sodium Chloride 1,000 mls @ 999 mls/hr 05/26/24 22:19 05/27/24 00:04 Ns IV 05/26/24 23:19 Infused .Q1H1M ONE Infusion Cefazolin Sodium 1 gm/ Sodium 50 mls @ 100 mls/hr 05/26/24 23:38 05/27/24 00:37 Chloride IV 05/27/24 00:07 Infused ONCE ONE Infusion Ondansetron HCl 4 mg 05/26/24 22:19 05/26/24 22:43 Ondansetron Hcl 4 Mg/2 Ml Vial IVPUSH 05/26/24 22:20 4 mg ONCE ONE Administration Medical Decision Making Medical Decision Making [facility] Narrative: Patient with localized cellulitis at the site of Reclast infusion with normal WBC count possible reactive reaction patient does have history of migraine headache likely migraine cause in the headache no signs of focal deficit afebrile Differential Diagnosis Differential Diagnoses: The differential diagnosis associated with the presentation includes Lab Data [facility] Lab Attestation statement: I reviewed the patient's lab results. 05/26/24 22:39 05/26/24 22:39 Labs: Lab Results 05/26/24 Range/Units 22:39 WBC 7.3 (4.8-10.8) X10*3/uL RBC 4.42 (4.20-5.50) X10*6/uL Hgb 15.4 (12.0-16.0) g/dl Hct 43.4 (37.0-47.0) % MCV 98.2 H (80.0-98.0) fL MCH 34.8 H (27.0-33.0) pg MCHC 35.5 H (31.0-35.0) g/dl RDW 12.8 (11.0-16.0) % Plt Count 253 (160-400) X10*3/uL MPV 9.6 (9.4-12.3) fL Immature Gran % (Auto) 0.3 (0.0-0.4) % Neut % (Auto) 61.2 (45-73) % Lymph % (Auto) 27.9 (20-40) % Anson % (Auto) 8.1 (2-11) % Eos % (Auto) 2.1 (0-4) % Baso % (Auto) 0.4 (0-2) % Lymph # (Auto) 2.0 (1.2-4.9) X10*3/uL Anson # (Auto) 0.6 (0.1-1.2) X10*3/uL Eos # (Auto) 0.2 (0.0-0.4) X10*3/uL Baso # (Auto) 0.0 (0.0-0.2) X10*3/uL Abs Immat Gran (auto) 0.02 (0.00-0.03) X10*3/uL Absolute Neuts (auto) 4.4 (2.0-8.3) x10*3/uL Absolute Nucleated RBC 0.000 (0.0-0.012) X10*3/uL Nucleated RBC % (auto) 0.0 (0.0-0.2) /100WBC Sodium 141 (135-145) mmol/L Potassium 3.9 (3.3-5.1) mmol/L Chloride 107 (96-108) mmol/L Carbon Dioxide 23 (22-29) mmol/L Anion Gap 15 (12-20) BUN 6 L (9-16) mg/dL Creatinine 0.71 (0.5-1.4) mg/dL Estim Creat Clear Calc 103.8 Estimated GFR > 60 Random Glucose 83 (60-115) mg/dL Calcium 9.4 (8.4-10.2) mg/dL Magnesium 2.4 (1.6-2.6) mg/dL Total Bilirubin 0.4 (0.0-1.0) mg/dL AST 28 (5-31) U/L ALT 24 (0-31) U/L Alkaline Phosphatase 113 (39-117) U/L Total Protein 7.8 (6.5-8.0) g/dL Albumin 4.2 (3.5-5.0) g/dL Discharge Plan Discharge Clinical Impression: Cellulitis, Headache, migraine Patient Disposition: Home, Self-Care Instructions: Cellulitis (ED), Migraine Headache (ED) Additional Instructions: Take antibiotic as prescribed Report to the ER/PCP if the redness spreads beyond the line marked or have high fever Medicine for headache as prescribed Follow with PCP Prescriptions: New ichcaqgjst-exuysnzluemef-hkyi 50-325-40 mg tablet 1 tab PO Q6H PRN (Reason: haeadace) Qty: 20 0RF cephalexin 500 mg capsule 500 mg PO QID 10 Days Qty: 40 0RF doxycycline hyclate 100 mg tablet 100 mg PO BID Qty: 20 0RF No Action celecoxib [Celebrex] 200 mg capsule 200 mg PO BID 30 Days Qty: 60 3RF tizanidine 2 mg tablet 2 mg PO BEDTIME tizanidine 4 mg tablet 4 mg PO BEDTIME PRN (Reason: Muscle Spasm) chlorzoxazone 500 mg tablet 500 mg PO TID PRN (Reason: headache) lorazepam 0.5 mg tablet 0.5 mg PO BID PRN (Reason: anxiety) duloxetine 30 mg capsule,delayed release(DR/EC) 30 mg PO DAILY Rx Instructions: TAKE WITH 60 MG CAPS FOR TOTAL OF 90 MG duloxetine 60 mg capsule,delayed release(DR/EC) 60 mg PO DAILY Rx Instructions: TAKE WITH 30 MG CAPS FOR TOTAL FOR 90 MG DAILY trazodone 100 mg Tablet 100 mg PO BEDTIME PRN (Reason: Insomnia) polyethylene glycol 3350 [ClearLax] 17 gram/dose powder 17 g PO DAILY PRN (Reason: constipation) gabapentin 400 mg capsule PO Print Language: Tamazight
[2024-05-26] MEDS: Acetaminophen 325 MG TABLET 975 MG PO (21:54)
[2024-05-26 22:06] VITALS: BP 124/81; PULSE 93; RESP 16; TEMP 36.6; O2SAT 95
[2024-05-26 22:43] LABS: MANUAL DIFF FLAG NO
[2024-05-26] MEDS: HYDROmorphone HCl 2 MG/ML VIAL IVPUSH (22:43)
[2024-05-26] MEDS: ondansetron HCL 4 MG/2 ML VIAL IVPUSH (22:43)
[2024-05-26] MEDS: 0.9 % Sodium Chloride 1,000 ML 999 ML IV (22:43)
[2024-05-26 22:44] LABS: Basophils Percent Auto 0.4 % (0-2); Eosinophils Absolute Auto 0.2 X10*3/uL (0.0-0.4); Eosinophils Percent Auto 2.1 % (0-4); Hematocrit 43.4 % (37.0-47.0); Hemoglobin 15.4 g/dl (12.0-16.0); Imm Gran Abs Auto 0.02 X10*3/uL (0.00-0.03); Imm Gran Pct Auto 0.3 % (0.0-0.4); Lymphocytes Percent Auto 27.9 % (20-40); Mean Corpuscular HGB Conc 35.5 g/dl (31.0-35.0); Mean Corpuscular Hemoglobin 34.8 pg (27.0-33.0); Mean Corpuscular Volume 98.2 fL (80.0-98.0); Mean Platelet Volume 9.6 fL (9.4-12.3); Monocytes Absolute Auto 0.6 X10*3/uL (0.1-1.2); Monocytes Percent Auto 8.1 % (2-11); Neutrophils Absolute Auto 4.4 x10*3/uL (2.0-8.3); Neutrophils Percent Auto 61.2 % (45-73); Platelet Count 253 X10*3/uL (160-400); Red Blood Count 4.42 X10*6/uL (4.20-5.50); Red Cell Distribution Width 12.8 % (11.0-16.0); White Blood Count 7.3 X10*3/uL (4.8-10.8)
[2024-05-26 23:01] LABS: Alanine Aminotransferase 24 U/L (0-31); Albumin Level 4.2 g/dL (3.5-5.0); Alkaline Phosphatase 113 U/L (39-117); Anion Gap 15 (12-20); Aspartate Amino Transferase 28 U/L (5-31); Bilirubin Total 0.4 mg/dL (0.0-1.0); Blood Urea Nitrogen 6 mg/dL (9-16); Calcium 9.4 mg/dL (8.4-10.2); Carbon Dioxide 23 mmol/L (22-29); Chloride 107 mmol/L (96-108); Creatinine Clr Calc Pharmacy 103.8; Estimated Glomerular Filt Rate > 60; Glucose Random 83 mg/dL (60-115); Magnesium 2.4 mg/dL (1.6-2.6); Potassium 3.9 mmol/L (3.3-5.1); Sodium 141 mmol/L (135-145); Total Protein 7.8 g/dL (6.5-8.0)
[2024-05-27] VITALS: BP 118/75; PULSE 93; RESP 18; TEMP 36.4; O2SAT 97
[2024-05-27] MEDS: HYDROmorphone HCl 1 MG/ML SYRINGE IVPUSH (00:04)
[2024-05-27] MEDS: Doxycycline Monohydrate 100 MG CAPSULE PO (00:05)
[2024-05-27 01:06] VITALS: BP 118/75; PULSE 93; RESP 18; TEMP 36.4; O2SAT 97
--- OUTSIDE RECORDS SUMMARY | 2024-06-01 06:22 | XMS_ITS | Continuity of Care Document ---
Author Organization [facility] Address [address] [place] [address] [address], [address] [place] [address]- Care Team Providers Care Facility Planner Name Role Phone Lucius Doe MD Primary Care Physician [phone] [place] [facility] [place] [id number] Date(s): 11/03/23 - 12/03/23 [facility] [address] [place] [address] Drive, [address] [place], [place] [address] Attending Physician: Chrystal Arias Admitting Physician: Admtr, Chrystal Referring Physician: Admtr, Ar8 Allergies, Adverse Reactions, Alerts Substance Reaction Severity Status Bee Stings localized swelling(no respiratory) Active Immunizations Given and Recorded Vaccine Date Status Refusal Reason Hepatitis A Adult Vaccine 1 03/21/13 Given Typhoid Vaccine, Inactivated 03/21/13 Given 1Result Comment: [03/21/2013] hep A #1 Medications acetaminophen 325 mg oral tablet 650 mg, By Mouth, Every 4 hours, PRN, Refills 0, Maintenance, Headache, 07/08/19 9:34:26 EDT Start Date: 07/08/19 Status: Ordered cymbalta cymbalta, Refills 0, Maintenance, 05/02/21 12:43:00 EDT, Supply Start Date: 05/02/21 Status: Ordered FLUoxetine 40 mg oral capsule TAKE TWO CAPSULES BY MOUTH ONE TIME DAILY Start Date: 07/07/19 Status: Ordered gabapentin 300 mg oral capsule 300 mg, 1, capsule, By Mouth, 3 times a day, # 42 capsule, Refills 0, Tot. Refills 0, Maintenance, 07/08/19 9:34:28 EDT, Print Requisition Start Date: 07/08/19 Stop Date: 07/22/19 Status: Ordered ibuprofen 600 mg oral tablet 600 mg, By Mouth, Every 8 hours, Refills 0, Maintenance, 07/08/19 9:35:18 EDT Start Date: 07/08/19 Status: Ordered LORazepam 0.5 mg oral tablet 1 tablet = 0.5 mg, By Mouth, PRN as needed for anxiety, TAKE ONE TABLET BY MOUTH TWICE A DAY Start Date: 07/07/19 Status: Ordered Prazosin By Mouth, PRN Other, for nightmares, 0 Refills, Maintenance, 07/07/19 7:54:22 EDT Start Date: 07/07/19 Status: Ordered Sumatriptan Once, 0 Refills, Maintenance, 05/02/21 12:43:00 EDT, Partial fill upon patient request if the prescription is for a schedule II opioid drug. Start Date: 05/02/21 Status: Ordered tiZANidine 4 mg oral tablet 4 mg, 1, tablet, By Mouth, Every 8 hours, # 90 tablet, Refills 1, Tot. Refills 1, Maintenance, 09/28/19 14:27:00 EST, Route to Pharmacy Electronically, [facility], 177.5, cm, 09/28/19 13:54:00 EST, Height, 77.27, kg, 07/07/19 18:16:00 EDT... Start Date: 09/28/19 Stop Date: 11/27/19 Status: Ordered traZODone 100 mg oral tablet 100 mg, 1, tablet, By Mouth, Daily at bedtime, PRN, Refills 0, Maintenance, Sleep, 07/07/19 7:53:23EDT Start Date: 07/07/19 Status: Ordered will be starting carisoprodol soon will be starting carisoprodol soon, Refills 0, Maintenance, 05/02/21 13:20:00 EDT, Supply Start Date: 05/02/21 Status: Ordered Social History Social History Type Response Smoking Status Former smoker, quit more than 30 days ago entered on: 07/07/19 Sex Patient Care team information Care Team Personnel Name: Lucius Doe MD Position: Reference Physician Member Role: PCP Address: Address: [address] [place] [address]- Care Team Related Persons Name: CHRISTIAN TOMMY Address: home [address] [place] [address]
--- OUTSIDE RECORDS SUMMARY | 2024-06-01 06:22 | XMS_ITS | Continuity of Care Document ---
Author Organization [facility] Address [address] [place] [address]- Care Team Providers Care Sound Controller Name Role Phone Lucius Doe MD Primary Care Physician Encounter [facility] [place] Date(s): 03/03/24 - 04/02/[address] [address] Attending Physician: Chrystal Arias Admitting Physician: Chrystal Arias Referring Physician: AdmtrChrystal Allergies, Adverse Reactions, Alerts Substance Reaction Severity [...] Reference Physician Member Role: PCP Address: Address: [address] [place] [address]- Care Team Related Persons Name: TOMMY GONZALES Address: home [address] [place] [address]
--- OUTSIDE RECORDS SUMMARY | 2024-06-01 06:22 | XMS_ITS | Continuity of Care Document ---
Author Organization [facility] Address [address] [place] [address] [address], [address] [place] [address]- Care Team Providers Care On Car Supervisor Name Role Phone Brook SULLIVAN, Lucius Topete Primary Care Physician Encounter [facility] [place] Date(s): 08/13/23 - 12/03/23 [facility] [address] [place] [address] Drive, [address] [place], [place] [address] [place] Attending Physician: iWll Miller MD Allergies, Adverse Reactions, Alerts Substance Reaction Severity [...] 30 days ago entered on: 07/07/19 Sex Radiology * Event Display: MRI Spine, Non- BH Authored Date: [id number] Patient Care team information Care Team Personnel Name: Lucius Doe MD Position: Reference Physician Member Role: PCP Address: Address: [address] [place] [id number]- Care Team Related Persons Name: TOMMY GONZALES Address: home [address] [place] [address]
--- OUTSIDE RECORDS SUMMARY | 2024-06-01 06:22 | XMS_ITS | Continuity of Care Document ---
Author Organization [facility] Address [address] [place] [address] [address], [address] [place] [address]- Care Team Providers Care Oracle Database Architect Name Role Phone Brook SULLIVAN, Lucius Topete Primary Care Physician Encounter [facility] Date(s): 08/13/23 - 09/12/23 [facility] [address] [place] [address] Drive, [address] [place], [place] [address] Allergies, Adverse Reactions, Alerts Substance Reaction Severity [...] Reference Physician Member Role: PCP Address: Address: [address] [place] [address]- Care Team Related Persons Name: CHRISTIAN TOMMY Address: home [address] [place] [address]
--- OUTSIDE RECORDS SUMMARY | 2024-06-01 06:22 | XMS_ITS | Continuity of Care Document ---
Author Organization [facility] Address [address] [place] [address]- Care Team Providers Care Computational Geneticist Name Role Phone Lucius Doe MD Primary Care Physician [phone] [place] [facility] [place]25/24 - 03/15/[address] [address]- Encounter Diagnosis Iliotibial band syndrome, left leg(Final) - Discharge Disposition: A-D/C Home Attending Physician: Lucius Doe MD Admitting Physician: Lucius Doe MD Allergies, Adverse Reactions, Alerts Substance Reaction [...] Reference Physician Member Role: PCP Address: Address: [address] [place] [address]- Care Team Related Persons Name: CHRISTIAN TOMMY Address: home [address] [place] [address]
== END 2024-05-27 01:07 | disposition home or self-care (01) ==
PROVIDERS: Emergency Provider Internal Medicine; PCP Family Medicine
DX: G43.909 Migraine, unspecified, not intractable, without status migrainosus (principal); L03.114 Cellulitis of left upper limb; R60.0 Localized edema; Z79.899 Other long term (current) drug therapy; Z87.891 Personal history of nicotine dependence
CPT/HCPCS: 36415; 80053; 83735; 85025; 93971; 96361; 96365; 96375; 96376; 99284; J0690; J1170; J2405

== ENCOUNTER 2025-05-10 14:06 | Emergency (ER) | payer OTHER, SELFPAY ==
--- NOTE | ~2025-05-10 | CT_ITS ---
EXAMINATION: CT ABDOMEN AND PELVIS WITH CONTRAST CLINICAL INFORMATION: LLQ Pain/tenderness. ABD PAIN, VOMITING COMPARISON: None available. TECHNIQUE: Multidetector volumetric images were obtained from the superior aspect of the liver through the pubic symphysis following administration 85 mL of Omnipaque 350 intravenous contrast. Sagittal and coronal reformatted images were obtained on the technologist's workstation. Oral contrast: No This CT examination was performed using dose optimization techniques as appropriate, variously including the following: *Automated exposure control *Adjustment of mA and/or kV according to patient size (this includes techniques or standardized protocols for targeted exams where dose is matched to indication/reason for exam; i.e. extremities or head) *Use of iterative reconstruction technique FINDINGS: LUNG BASES: Linear scarring/atelectasis in the lingular region. No confluent consolidation. No pleural effusions. LIVER, GALLBLADDER, AND BILIARY TREE: Normal attenuation of the liver parenchyma. No focal hepatic lesion. The gallbladder is unremarkable with no evidence of radiopaque gallstones, gallbladder wall thickening, or obvious pericholecystic inflammatory changes. Common bile duct is mildly dilated up to 0.8 cm (coronal 32/85), without obvious obstructing stones. PANCREAS: Unremarkable. SPLEEN: No splenomegaly. No focal lesions. ADRENAL GLANDS: No nodules. KIDNEYS AND URETERS: No focal renal lesions or hydronephrosis on either side. BLADDER: Decompressed, without obvious intravesical stones. GASTROINTESTINAL TRACT: No bowel distention. ABDOMINAL WALL: Small fat-containing umbilical hernia. LYMPH NODES: No bulky lymphadenopathy. VASCULAR: Mild atherosclerotic disease. No abdominal aortic aneurysm. PELVIC VISCERA: There is an approximately 2.4 x 2.1 x 2.4 cm mildly hyperdense oval lesion on on the left side of the uterus (3:74, 6:53). OSSEOUS STRUCTURES: Chronic deformity of the left pelvic bones representing sequela from prior trauma. No acute or suspicious osseous abnormality. CT/CT abdomen pelvis w IV con IMPRESSION: 1. No acute findings in the abdomen/pelvis. In particular, no acute findings in the left lower quadrant. 2. Incompletely evaluated mildly hyperdense left uterine lesion, probably an uterine leiomyoma. Correlate with pelvic ultrasound. 3. Mildly dilated common bile duct (0.8 cm), of unclear clinical significance. Electronically signed by: Leonor Burleson MD 05/10/2025 04:10 PM EDT RP
[2025-05-10 14:20] VITALS: BP 132/98; PULSE 86; RESP 16; TEMP 36; O2SAT 98; BMI 28.9
--- NOTE | 2025-05-10 14:24 | ED.GENADULT ---
HPI - General Adult General Chief complaint: Abdominal Pain Stated complaint: stomach pain Time Seen by Provider: 05/10/25 14:40 History of Present Illness ED Provider: Mynor CABRERA narrative: The patient is a 60-year-old woman who says that she developed abdominal pain during the night last night. The pain worsened this morning and seemed to settle into the left lower abdomen. She had associated nausea but no vomiting. No definite fever. She had 1 loose bowel movement this morning. No other diarrhea. She has not had a syndrome like this in the past. No urinary symptoms. No chest pain. She reports a headache that she thinks is secondary to her abdominal symptoms. Related Data Home Medications ?Medication ?Instructions ?Recorded ?Confirmed chlorzoxazone 500 mg tablet 500 mg PO TID PRN headache 02/28/23 02/28/23 duloxetine 30 mg capsule,delayed 30 mg PO DAILY 02/28/23 02/28/23 release duloxetine 60 mg capsule,delayed 60 mg PO DAILY 02/28/23 02/28/23 release lorazepam 0.5 mg tablet 0.5 mg PO BID PRN anxiety 02/28/23 02/28/23 tizanidine 2 mg tablet 2 mg PO BEDTIME 02/28/23 02/28/23 tizanidine 4 mg tablet 4 mg PO BEDTIME PRN Muscle Spasm 02/28/23 02/28/23 trazodone 100 mg tablet 100 mg PO BEDTIME PRN Insomnia 02/28/23 02/28/23 polyethylene glycol 3350 17 17 g PO DAILY PRN constipation 04/02/23 gram/dose oral powder (ClearLax) gabapentin 400 mg capsule mg PO 05/14/23 Previous Rx's ?Medication ?Instructions ?Recorded celecoxib 200 mg capsule (Celebrex) 200 mg PO BID 30 days #60 caps 05/04/23 qznloklrcb-cfmdtejvtxelp-qadtyctq 1 tab PO Q6H PRN haeadace #20 tabs 05/27/24 50 mg-325 mg-40 mg tablet cephalexin 500 mg capsule 500 mg PO QID 10 days #40 caps 05/27/24 doxycycline hyclate 100 mg tablet 100 mg PO BID #20 tabs 05/27/24 ondansetron 4 mg disintegrating 4 mg PO Q6H PRN nausea and 05/10/25 tablet vomiting #10 tabs sucralfate 1 gram tablet 1 g PO Q6H PRN abdominal pain #60 05/10/25 tabs Allergies Allergy/AdvReac Type Severity Reaction Status Date / Time bee pollen (BEE STINGS) Allergy Mild SWELLING Verified 05/10/25 14:25 Review of Systems Review of Systems: Yes all other systems are reviewed and are negative [facility] Past Medical History Medical History History of hypothyroidism Anxiety and depression History of brain tumor No known health problems Surgical History Hx of brain surgery Social History Social History Household Members: None Housing: House Do you presently have visiting nurse or other home services: No Alcohol intake: current Alcohol intake frequency: a few times a week Alcohol type: wine Patient Tobacco Use Status: Former Tobacco user Cigarette Packs Per Day: 0.5 Cigarettes Per Day: 10.0 Smoked in Last 30 Days: No Use of substances other than those prescribed or required for medical reasons: Yes Substance Use Type: Marijuana Substance Use Frequency: Weekly Advance Directives: No Advance Directives Information Provided: No Patient : No service: No Current occupational status: unemployed Current occupation: rt handed Physical Exam ED Vital Signs: Vital Signs - 24 hr 05/10/25 14:20 05/10/25 14:30 05/10/25 16:39 Temperature 96.8 F 98.3 F 98.7 F Pulse Rate 86 87 84 Respiratory Rate 16 16 16 Blood Pressure 132/98 H 169/102 H 143/83 H Pulse Oximetry 98 98 98 Oxygen Delivery Method Room Air Room Air Room Air 05/10/25 18:14 Temperature 98.7 F Pulse Rate 84 Respiratory Rate 16 Blood Pressure 143/83 H Pulse Oximetry 98 Oxygen Delivery Method Room Air BMI result Body Mass Index 28.9 Const Other: The patient is a 60-year-old woman who was awake and alert. She looks mildly uncomfortable. Orientation/consciousness: patient oriented x3 HENMT Other: The face is symmetrical. ?Mucous membranes moist. Eyes Other: Pupils are round equal, conjunctivae are clear, extraocular movements intact Neck Neck: Yes normal visual inspection and Yes full ROM Resp Effort & Inspection: normal respiratory effort Auscultation: clear to auscultation bilaterally Cardio Rate: regular rate Rhythm: regular rhythm Heart sounds: S1 normal heart sound present and S2 normal heart sound present GI Other: The abdomen is soft. There is tenderness in the left lower quadrant Skin Other: The skin is dry and unremarkable General skin exam: no rashes or lesions noted Neuro General: patient oriented x3, tone normal, moves all extremities, no focal motor deficits and CN's II-XI intact bilaterally Extrem Other: There is no calf swelling or tenderness. No asymmetry. No peripheral edema. Course Course Course Narrative: RME, this is a rapid medical exam performed by Jose M Agosto please refer to primary provider for complete H&P- 60-year-old female presents for evaluation of lower abdominal pain. Denies any significant UTI symptoms. Plan for labs, urinalysis Medications Administered Discontinued Medications Generic Name Dose Route Start Last Admin Trade Name Freq PRN Reason Stop Dose Admin Droperidol 0.625 mg 05/10/25 16:54 05/10/25 17:20 Droperidol 5 Mg/2 Ml Vial IVPUSH 05/10/25 16:55 0.625 mg ONCE ONE Administration Sodium Chloride 1,000 mls @ 999 mls/hr 05/10/25 15:00 05/10/25 16:26 Ns IV 05/10/25 16:00 Infused .Q1H1M GABRIEL Infusion Acetaminophen 1,000 mg in 100 mls @ 400 mls/hr 05/10/25 14:58 05/10/25 16:26 Ofirmev IV 05/10/25 15:12 Infused ONCE ONE Infusion Iohexol 100 ml 05/10/25 15:32 05/10/25 15:33 Iohexol 350 Mg/Ml 100 Ml Infus..Btl IV 05/10/25 15:33 85 ml ONCE ONE Administration Ketorolac Tromethamine 15 mg 05/10/25 14:56 05/10/25 15:10 Ketorolac Tromethamine 15 Mg/Ml Vial IVPUSH 05/10/25 14:57 15 mg ONCE ONE Administration Ondansetron HCl 4 mg 05/10/25 14:56 05/10/25 15:11 Ondansetron Hcl 4 Mg/2 Ml Vial IVPUSH 05/10/25 14:57 4 mg ONCE ONE Administration Sucralfate 1 gm 05/10/25 16:53 05/10/25 17:21 Sucralfate Oral Suspension 1 Gm/10 Ml Oral.Susp PO 05/10/25 16:54 1 gm ONCE ONE Administration Medical Decision Making Medical Decision Making [facility] Narrative: The patient is a 60-year-old woman who presented with abdominal pain that started last night. She seemed to have left lower quadrant tenderness on exam. Potentially this seems like diverticulitis. Her labs were unremarkable. A CT of the abdomen and pelvis shows no definite acute findings. There was an incidental finding of ?incompletely evaluated mildly hyperdense left uterine lesion. Probably a uterine leiomyoma. Correlate with pelvic ultrasound. ? The patient was treated with IV droperidol, IV acetaminophen, and IV ketorolac. She had some improvement in her symptoms. Her symptoms made to some degree be related to gastritis. She was also given a dose of oral sucralfate that seemed to help. The patient looks well enough for discharge. She is already on a proton pump inhibitor. I will prescribe additional sucralfate for use at home. She should follow up with her PCP. I explained that the radiologist recommended an outpatient ultrasound with regard to the question of a uterine leiomyoma. Lab Data 05/10/25 14:41 05/10/25 14:41 Labs: Lab Results 05/10/25 05/10/25 Range/Units 14:41 15:06 WBC 5.2 (4.8-10.8) X10*3/uL RBC 4.43 (4.20-5.50) X10*6/uL Hgb 14.9 (12.0-16.0) g/dl Hct 42.6 (37.0-47.0) % MCV 96.2 (80.0-98.0) fL MCH 33.6 H (27.0-33.0) pg MCHC 35.0 (31.0-35.0) g/dl RDW 12.0 (11.0-16.0) % Plt Count 236 (160-400) X10*3/uL MPV 9.2 L (9.4-12.3) fL Immature Gran % (Auto) 0.2 (0.0-0.4) % Neut % (Auto) 61.1 (45-73) % Lymph % (Auto) 27.5 (20-40) % [place] % (Auto) 9.8 (2-11) % Eos % (Auto) 0.8 (0-4) % Baso % (Auto) 0.6 (0-2) % Lymph # (Auto) 1.4 (1.2-4.9) X10*3/uL [place] # (Auto) 0.5 (0.1-1.2) X10*3/uL Eos # (Auto) 0.0 (0.0-0.4) X10*3/uL Baso # (Auto) 0.0 (0.0-0.2) X10*3/uL Abs Immat Gran (auto) 0.01 (0.00-0.03) X10*3/uL Absolute Neuts (auto) 3.2 (2.0-8.3) x10*3/uL Absolute Nucleated RBC 0.000 (0.0-0.012) X10*3/uL Nucleated RBC % (auto) 0.0 (0.0-0.2) /100WBC Sodium 141 (135-145) mmol/L Potassium 4.2 (3.3-5.1) mmol/L Chloride 106 (96-108) mmol/L Carbon Dioxide 28 (22-29) mmol/L Anion Gap 11 L (12-20) BUN 10 (9-16) mg/dL Creatinine 0.69 (0.5-1.4) mg/dL Estim Creat Clear Calc 105.6 Estimated GFR > 60 Random Glucose 98 (60-115) mg/dL Calcium 9.0 (8.4-10.2) mg/dL Total Bilirubin 0.4 (0.0-1.0) mg/dL AST 28 (5-31) U/L ALT 17 (0-31) U/L Alkaline Phosphatase 89 (39-117) U/L C-Reactive Protein 0.39 (< or = 0.50) mg/dL Total Protein 7.0 (6.5-8.0) g/dL Albumin 4.2 (3.5-5.0) g/dL Lipase 16 (8-78) U/L Urine Color Yellow Urine Appearance Clear Urine pH 6.5 (5.0-9.0) Ur Specific [place] 1.020 (1.005-1.025) Urine Protein Trace (Neg-Trace) mg/dL Urine Glucose (UA) Negative (Negative) mg/dL Urine Ketones Negative (Negative) mg/dL Urine Blood Negative (Negative) Urine Nitrite Negative (Negative) Ur Leukocyte Esterase Trace H (Negative) Urine RBC 0-2 (0-2) /HPF Urine WBC 0-5 (0-5) /HPF Ur Squamous Epith Cells >20 (0-2) /HPF Urine Bacteria 3+ (None Seen) Hyaline Casts 0-2 (0-2) /LPF Influenza Type A (PCR) NEGATIVE (Negative) Influenza Type B (PCR) NEGATIVE (Negative) RSV RNA Qual (PCR) NEGATIVE (Negative) SARS-CoV-2 RNA (RT-PCR) NEGATIVE (Negative) Discharge Plan Discharge Clinical Impression: Abdominal pain Patient Disposition: Home, Self-Care Additional Instructions: Your testing in the emergency room today has been quite reassuring. Your CAT scan does not show any explanation for your acute pain. The CAT scan does show a possible fibroid on your uterus but I do not think this would has been causing your pain. At some point in the future it would be good to have an ultrasound to look at this finding to confirm that this is a fibroid. I have sent prescriptions for sucralfate that you may use on an as-needed basis for pain to see if it helps. I have also sent a prescription for ondansetron which you may use as needed for nausea. Please make a follow up appointment soon with your regular doctor to discuss this episode further and to arrange an ultrasound of your uterus. Return to the emergency room if significantly worse. Prescriptions: New ondansetron 4 mg tablet,disintegrating 4 mg PO Q6H PRN (Reason: nausea and vomiting) Qty: 10 0RF sucralfate 1 gram tablet 1 g PO Q6H PRN (Reason: abdominal pain) Qty: 60 0RF No Action celecoxib [Celebrex] 200 mg capsule 200 mg PO BID 30 Days Qty: 60 3RF tizanidine 2 mg tablet 2 mg PO BEDTIME tizanidine 4 mg tablet 4 mg PO BEDTIME PRN (Reason: Muscle Spasm) chlorzoxazone 500 mg tablet 500 mg PO TID PRN (Reason: headache) lorazepam 0.5 mg tablet 0.5 mg PO BID PRN (Reason: anxiety) duloxetine 30 mg capsule,delayed release(DR/EC) 30 mg PO DAILY Rx Instructions: TAKE WITH 60 MG CAPS FOR TOTAL OF 90 MG duloxetine 60 mg capsule,delayed release(DR/EC) 60 mg PO DAILY Rx Instructions: TAKE WITH 30 MG CAPS FOR TOTAL FOR 90 MG DAILY trazodone 100 mg Tablet 100 mg PO BEDTIME PRN (Reason: Insomnia) fhqvpgrkop-yhgzxjakvkqad-vugd 50-325-40 mg tablet 1 tab PO Q6H PRN (Reason: haeadace) Qty: 20 0RF cephalexin 500 mg capsule 500 mg PO QID 10 Days Qty: 40 0RF doxycycline hyclate 100 mg tablet 100 mg PO BID Qty: 20 0RF polyethylene glycol 3350 [ClearLax] 17 gram/dose powder 17 g PO DAILY PRN (Reason: constipation) gabapentin 400 mg capsule PO Referrals: Bill Gallagher MD [Physician, Family Practice] Interventions: ED Discharge Assessment Last Done: 05/10/25 18:14 Discharge Date/Time: 05/10/25 18:22 Print Language: [place]
[2025-05-10 14:30] VITALS: BP 169/102; PULSE 87; RESP 16; TEMP 36.8; O2SAT 98
[2025-05-10 14:46] LABS: MANUAL DIFF FLAG NO
[2025-05-10 14:47] LABS: Hematocrit 42.6 % (37.0-47.0); Hemoglobin 14.9 g/dl (12.0-16.0); Imm Gran Abs Auto 0.01 X10*3/uL (0.00-0.03); Imm Gran Pct Auto 0.2 % (0.0-0.4); Lymphocytes Absolute Auto 1.4 X10*3/uL (1.2-4.9); Mean Corpuscular HGB Conc 35.0 g/dl (31.0-35.0); Mean Corpuscular Hemoglobin 33.6 pg (27.0-33.0); Mean Corpuscular Volume 96.2 fL (80.0-98.0); NRBC Abs Auto 0.000 X10*3/uL (0.0-0.012); NRBC Pct Auto 0.0 /100WBC (0.0-0.2); Platelet Count 236 X10*3/uL (160-400); Red Blood Count 4.43 X10*6/uL (4.20-5.50); White Blood Count 5.2 X10*3/uL (4.8-10.8)
--- NOTE | 2025-05-10 14:56 | PC.NURSE ---
Patient presents to ED c/o abdomen pain rated 8/10 in LLQ beginning to radiate to the middle. Pain started early this morning and has become progressively worse throughout the day. c/o n/v and diarrhea denies blood. Denies SOB, urinary symptoms. Provider in to see patient. Plan of care on going
[2025-05-10 15:05] LABS: Alanine Aminotransferase 17 U/L (0-31); Albumin Level 4.2 g/dL (3.5-5.0); Alkaline Phosphatase 89 U/L (39-117); Anion Gap 11 (12-20); Aspartate Amino Transferase 28 U/L (5-31); Blood Urea Nitrogen 10 mg/dL (9-16); Calcium 9.0 mg/dL (8.4-10.2); Carbon Dioxide 28 mmol/L (22-29); Chloride 106 mmol/L (96-108); Creatinine Clr Calc Pharmacy 105.6; Estimated Glomerular Filt Rate > 60; Lipase 16 U/L (8-78); Potassium 4.2 mmol/L (3.3-5.1); Sodium 141 mmol/L (135-145); Total Protein 7.0 g/dL (6.5-8.0)
[2025-05-10 15:12] LABS: Appearance Urine Clear; Glucose Urine UA Negative (Negative); PH 6.5 (5.0-9.0); Specific Gravity - Urine 1.020 (1.005-1.025); UMIC TRIGGER UACC YES
[2025-05-10 15:23] LABS: Resp Syncy Virus RNA Qual PCR NEGATIVE (Negative); SARS COV2 PCR INHOUSE NEGATIVE (Negative)
[2025-05-10] MEDS: iohexoL 350 MG/ML 100 ML INFUS..BTL IV (15:33)
--- OUTSIDE RECORDS SUMMARY | 2025-05-10 15:54 | XMS_ITS | Clinical Summary ---
Author Organization [facility] Address [address] [place] [address] Care Team Providers Care Interactive Media Project Manager Name Role Phone Unavailable Primary Care Provider Unavailabl e Source Comments PLEASE NOTE, if this patient is a minor, it may be UNLAWFUL to discuss sensitive information that is contained in these records (such as FAMILY PLANNING, MENTAL HEALTH or SUBSTANCE ABUSE) with the minor patient's parent or other person without the patient's specific authorization.[facility] Medications calcium carbonate-vitam in D3 500 mg-10 mcg (400 unit) tablet Take 2 Tablets by mouth daily 4 Active celecoxib (CELEBREX) 200 mg capsule Take 200 mg by mouth 2 (two) times daily Active chlorzoxazone (PARAFON FORTE) 500 mg tablet 1 tid prn headache. Do not drive if drowsy 3 Active cyanocobalamin (VITAMIN B-12) 1,000 mcg tablet Take 1,000 mcg by mouth daily 4 Active DULoxetine (CYMBALTA) [address] capsule TAKE ONE CAPSULE BY MOUTH DAILY, TAKE WITH 60 MG CAPSULE FOR A TOTAL OF 90 MG/DAY. 4 Active DULoxetine (CYMBALTA) [address] capsule TAKE ONE CAPSULE BY MOUTH DAILY. TAKE WITH 30 MG FOR 90 MG TOTAL 4 Active gabapentin (NEURONTIN) 400 mg capsule TAKE 1 CAPSULE BY MOUTH IN THE MORNING, 1 CAPSULE AT MIDDAY AND 2 CAPSULES IN THE EVENING Active lidocaine (LIDODERM) 5 % patch PLACE 1 PATCH ON LEFT KNEE DAILY. REMOVE AND DISCARD PATCH WITHIN 12 HOURS OR DIRECTED BY MD. Active LORazepam (ATIVAN) 0.5 mg tablet Take 0.5 mg by mouth 2 (two) times daily as needed for anxiety Active oxyCODONE (ROXICODONE) 5 mg tablet TAKE 1 TABLET BY MOUTH EVERY 8 HOURS NEEDED PAIN X 2 DAYS * READ SEDATION WARNINGS 4 Active pantoprazole (PROTONIX) 40 mg EC tablet TAKE ONE TABLET BY MOUTH EVERY DAY BEFORE BREAKFAST Active SUMAtriptan succinate (IMITREX) 100 mg tablet TAKE 1 TABLET BY MOUTH NEEDED FOR SEVERE HEADACHE; REPEAT IN 2 HOURS IF HEADACHE PERSISTS. DO NOT TAKE MORE THAN 200MG IN 24 HOURS. 2 Active thyroid, pork, (ARMOUR) 30 mg tablet TAKE 1 TABLET 30 MG) BY MOUTH DAILY. Active tiZANidine (ZANAFLEX) 4 mg tablet TAKE ONE TABLET BY MOUTH AT BEDTIME NEEDED , TAKE WITH 2 MG TABLET FOR TOTAL DOSE OF 6 MG 4 Active traZODone (DESYREL) 100 mg tablet TAKE 1 TO 2 TABLETS BY MOUTH NIGHTLY NEEDED FOR SLEEP Active Social History Tobacco Use Types Packs/Day Years Used Date Smoking Tobacco: Some Days Cigarettes Tobacco Cessation:Ready to Q uit: Not Asked; Counseling Given: Not Answered Social Connections Answer Date Recorded Connectedness 0 06/28/2024 Financial Resource Strain Answer Date R ecorded Financial Resource Strain 0 2023 Stress Answer Date Recorded Stress 0 06/14/2024 Physical Activity Answer Date Recorded Physical Activity 0 06/14/2024 Food Insecurity Answer Date Recorded Food 0 07/08/2024 Transportation Needs Answer Date Record ed Transportation 0 06/14/2024 Housing Stability Answer Date Recorded Housing 0 06/14/2024 Safety and Environment Answer Date Chris rded Safety 0 06/14/2024 Utilities Answer Date Recorded Utilities 0 06/14/2024 Employment Answer Date Recorded Stress 0 06/28/2024 Comments Unknown Sex and Gender Information Value Date Recorded Sex Assigned at Female 06/14/2024 5:25 AM PDT Legal Sex Female 5:08 AM PDT Gender Identity Female 06/14/2024 5:25 AM PDT Sexual Orientation Bisexual 06/14/2024 5: 25 AM PDT Last Filed Vital Signs Vital Sign Reading Time Taken Comments Blood Pressure 126/86 06/14/2024 9:09 AM EDT Pulse 88 06/14/2024 9:02 AM EDT Temperature 36.9 C (98.4 F) 06/14/2024 9:02 AM EDT Respiratory Rate 16 06/14/2024 9:02 AM EDT Oxygen Saturation 98% 06/14/2024 9:02 AM EDT Inhaled Oxygen Concentration - - Weight 88.5 kg (195 lb) 06/14/2024 9:02 AM EDT Height 177.8 cm (5' 10 ) 06/14/2024 9:02 AM EDT Body Mass Index 27.98 06/14/2024 9:02 AM EDT Plan of Treatment Health Maintenance Due Date Last Done Comments Anxiety Screening 1967 HPV Screening 1967 Pap + HPV 1967 Tobacco Cessation Counseling (#1) 1967 HIV Screening 1982 Imm-Hepatitis B (1 of 3 - 19 + 3-dose series) 1986 Imm-Pneumococcal 50+ (1 of 2 - PCV) 1986 Cervical Cancer Screening 1988 Pap Smear 1988 Breast Cancer Screening (Mammogram) 2007 CT Colonography 2012 Colonoscopy 2012 Colorectal Cancer Screening 2012 FIT/gFOBT 2012 Fecal DNA 2012 Flexible Sigmoidoscopy 2012 Diabetes Screening 07/20/2023 07/20/2020, 06/14/2020 Pid-VSLKG-00 ( season) 2024 07/25/2022, 12/09/2021, 12/05/2020, Additional history exists Alcohol and Drug Screen 10/12/2024 Depression Annual Screen 10/12/2024 TSH Monitoring 04/22/2025 04/22/2024 Imm-Influenza (#1) 2025 06/29/2023, 1 , 07/17/2020, Additional history exists Hypertension Screening (#1) 06/14/2025 Lipid Screening 04/16/2028 04/16/2023 Imm-DTaP/Tdap/Td (3 - Td or Tdap) 06/29/2033 023, 11/22/2012 Imm-Zoster, Recombinant Completed 09/09/2021, 09/19 Hepatitis C Screening Completed 12/09/2021 Cervical Ablation/Cold-Knife Conization Discontinued Cervical Cryotherapy Discontinued Colposcopy Discontinued Endometrial Biopsy Discontinued Excision/Leep Discontinued HPV Genotyping Discontinued Vaginal Pap Discontinued Vulvoscopy Discontinued Insurance [facility] Member Subscriber Plan / Payer (Ef fective 2023-Present) Name:Gaudencio Grecoisamar Relation to Subscriber:Self Name:Big SpringRafiq Payer ID:[id number] Group ID:Not on file Type:Medicaid Address: [place] [address] [place] [address]
[2025-05-10 16:39] VITALS: BP 143/83; PULSE 84; RESP 16; TEMP 37.1; O2SAT 98
[2025-05-10] MEDS: Sucralfate Oral Suspension 1 GM/10 ML ORAL.SUSP PO (17:21)
[2025-05-10 18:14] VITALS: BP 143/83; PULSE 84; RESP 16; TEMP 37.1; O2SAT 98
== END 2025-05-10 18:22 | disposition home or self-care (01) ==
PROVIDERS: Physician Assistant; Emergency Provider Emergency Medicine
DX: R10.32 Left lower quadrant pain (principal); R11.10 Vomiting, unspecified; R19.7 Diarrhea, unspecified; Z03.818 Encounter for observation for suspected exposure to other biological agents ruled out
CPT/HCPCS: 74177; 80053; 81001; 83690; 85025; 86140; 87637; 96361; 96374; 96375; 99284; 99285; J0131; J1790; J1885; J2405; Q9967

== ENCOUNTER → 2025-05-10 14:56 | Outpatient (BNV) | payer OTHER, SELFPAY | PROVIDERS: Emergency Provider Emergency Medicine; Visit Provider Radiology Body Imaging | DX: R10.9 Unspecified abdominal pain (principal) | CPT/HCPCS: 74177 ==

== ENCOUNTER 2025-06-25 19:28 | Emergency (ER) | payer OTHER, SELFPAY ==
[2025-06-25 19:37] VITALS: BP 172/97; PULSE 81; RESP 18; TEMP 36.6; O2SAT 100; BMI 29.3
--- NOTE | 2025-06-25 19:37 | ED_ITS ---
HPI - General Adult General Chief complaint: Nausea/Vomiting/Diarrhea Stated complaint: vomiting Time Seen by Provider: 06/25/25 21:45 Source: patient Mode of arrival: ambulatory Limitations: no limitations History of Present Illness ED Provider: Dr. Rachel Avila HPI narrative: 60-year-old female with a history of hypothyroidism presenting with nausea, vomiting, diarrhea, generalized crampy abdominal pain ongoing since yesterday morning. Patient states that she has been nauseous for at least a month now. Was seen in this emergency department at the end of April and followed up with her evening or night nurse supervisor to find out that she had a stone in her common bile duct after an MRCP a couple of weeks ago. She is scheduled to have an ERCP in 2 weeks with this evening or night nurse supervisor out of [place] however, today she developed crampy abdominal pain that was worse with inability to tolerate anything by mouth. Denies hematemesis. No reported fever. Denies chest pain or difficulty breathing. Has had several episodes of ?loose stools today . No reported hematochezia or melena. She denies known sick contacts, questionable food intake or recent travel. Related Data Home Medications ?Medication ?Instructions ?Recorded ?Confirmed chlorzoxazone 500 mg tablet 500 mg PO TID PRN headache 02/28/23 02/28/23 duloxetine 30 mg capsule,delayed 30 mg PO DAILY 02/28/23 release duloxetine 60 mg capsule,delayed 60 mg PO DAILY 02/28/23 release lorazepam 0.5 mg tablet 0.5 mg PO BID PRN anxiety 02/28/23 tizanidine 2 mg tablet 2 mg PO BEDTIME 02/28/23 tizanidine 4 mg tablet 4 mg PO BEDTIME PRN Muscle S pasm 02/28/23 02/28/23 trazodone 100 mg tablet 100 mg PO BEDTIME PRN Insomn ia 02/28/23 02/28/23 polyethylene glycol 3350 17 17 g PO DAILY PRN constipa tion 04/02/23 gram/dose oral powder (ClearLax) gabapentin 400 mg capsule mg PO 05/14/23 Previous Rx's ?Medication ?Instructions ?Recorded celecoxib 200 mg capsule (Celebrex) 200 mg PO BID 30 d ays #60 caps 05/04/23 xmnyogzqqv-gmoytmmxgzjwl-qzbyvvrq 1 tab PO Q6H PRN hae adace #20 tabs 05/27/24 50 mg-325 mg-40 mg tablet cephalexin 500 mg capsule 500 mg PO QID 10 days #40 ca ps 05/27/24 doxycycline hyclate 100 mg tablet 100 mg PO BID #20 ta bs 05/27/24 ondansetron 4 mg disintegrating 4 mg PO Q6H PRN nausea and 05/10/25 tablet vomiting #10 tabs sucralfate 1 gram tablet 1 g PO Q6H PRN abdominal julisa n #60 05/10/25 tabs metoclopramide HCl 10 mg tablet 10 mg PO Q6H PRN nause a and 06/26/25 (Reglan) vomiting #10 tabs Allergies Allergy/AdvReac Type Severity Reaction Status Date / Time bee pollen (BEE STINGS) Allergy Mild SWELLING Verified 06/25/25 19:40 Review of Systems 2 Review of Systems: As per HPI, full review of systems performed and negative but for the above mentioned pertinent positives and negatives. [facility] Past Medical History Medical History History of hypothyroidism Anxiety and depression History of brain tumor No known health problems Surgical History Hx of brain surgery Social History Social History Household Members: None Housing: House Do you presently have visiting nurse or other home services: No Alcohol intake: current Alcohol intake frequency: a few times a week Alcohol type: wine Patient Tobacco Use Status: Former Tobacco user Cigarette Packs Per Day: 0.5 Cigarettes Per Day: 10.0 Substance Use Type: Marijuana Advance Directives: No Advance Directives Information Provided: Yes service: No Current occupational status: unemployed Current occupation: rt handed Physical Exam ED Exam Exam: GENERAL: Ill-Appearing, appears uncomfortable. SKIN: Normal skin color for ethnicity, warm, dry, no rashes noted. HEENT: Normocephalic, atraumatic, no stridor, dry mucous membranes, dentition intact, EOMI, PERRLA. NECK: Soft, supple, full ROM, midline structures nontender, no step-offs, no deformities, no lymphadenopathy. CHEST: Heart regular tachycardia, no murmurs, symmetric chest rise and fall. PULMONARY: Clear to auscultation bilaterally, diminished at the bases, no labored breathing, no wheezes/rhales/rhonchi. ABDOMINAL: Soft, nondistended, diffusely tender to palpation without rebound or guarding, hyperactive bowel sounds in all quadrants. : Deferred. MUSCULOSKELETAL: Normal tone, full range of motion, no deformities, no peripheral edema. NEURO: Alert and oriented x3, CN II through XII intact, equal strength and sensation bilateral upper and lower extremities, no focal neurologic deficits. PSYCHIATRIC: Flat affect, fluid speech, good eye contact and appropriate demeanor. Vital Signs: Vital Signs - 24 hr 06/25/25 19:37 Temperature 97.8 F Pulse Rate 81 Respiratory Rate 18 Blood Pressure 172/97 H Pulse Oximetry 100 Oxygen Delivery Method Room Air BMI result Body Mass Index 29.3 Course Course Course Narrative: Rapid medical examination performed in triage by Lauren Mckeon PA-C. Patient is a 60 year old assigned female at presenting to the emergency department with nausea and vomiting. Detailed physical exam and review of systems are deferred to the rear load truck driver. Labs ordered. Patient placed back in the waiting room pending room availability and results. Patient had an MRCP that showed a possible obstructing bile stone. Medications Administered Discontinued Medications Generic Name Dose Route Start Last Admin Trade Name Freq PRN Reason Stop Dose Admin Diphenhydramine HCl 25 mg 06/25/25 23:39 06/25/25 23:56 Diphenhydramine Hcl 50 Mg/Ml Vial IVPUSH 06/25/25 23:40 25 mg ONCE ONE Administration Droperidol 1.25 mg 06/25/25 23:39 06/25/25 23:56 Droperidol 5 Mg/2 Ml Vial IVPUSH 06/25/25 23:40 1.25 mg ONCE ONE Administration Sodium Chloride 1,000 mls @ 999 mls/hr 06/25/25 22:00 06/26/25 00:00 Ns IV 06/25/25 23:00 Infused .Q1H1M GABRIEL Infusion Ketorolac Tromethamine 15 mg 06/25/25 21:47 06/25/25 22:30 Ketorolac Tromethamine 15 Mg/Ml Vial IVPUSH 06/25/25 21:48 15 mg ONCE ONE Administration Metoclopramide HCl 10 mg 06/25/25 21:47 06/25/25 22:30 Metoclopramide Hcl 10 Mg/2 Ml Vial IVPUSH 06/25/25 21:48 10 mg ONCE ONE Administration Medical Decision Making Medical Decision Making [facility] Narrative: Patient presents today with a chief complaint of vomiting. Differential diagnosis includes surgical emergency such as biliary colic, obstruction, enteritis, hyperglycemia, acidosis, food or drug ingestion, pancreatitis, CVA, allergic reaction such as anaphylaxis, cannabis hyperemesis syndrome or cyclic vomiting syndrome, among many others.? Patient is not showing signs of acute dehydration or hemodynamic instability.? They are having associated abdominal pain. ? Broad-based work-up was initiated based on above history and physical exam. Patient's abdominal exam is rather benign. Blood work today is reassuring. I see no reason to repeat her imaging. She does need to have an ERCP to have the common bile duct stone removed however, there is no obstruction noted on her CMP and she is not jaundiced. No evidence of infection today. We will plan to treat her symptoms and re-evaluate. If we can not achieve pain control and nausea control, she may need to be admitted for GI consult and ERCP in the hospital. Patient able to tolerate oral intake here in the emergency department. Provided with a prescription for Reglan for home. Discussed return precautions. Discharged to follow up with her evening or night nurse supervisor as an outpatient. Differential Diagnosis Differential Diagnoses: The differential diagnosis associated with the presentation includes (As above) Admission/Observation Consideration of admission/observation: Escalation of care including admission/observation considered Lab Data [facility] Lab Attestation statement: I reviewed the patient's lab results. 06/25/25 19:51 06/25/25 19:51 Labs: Lab Results 06/25/25 06/25/25 Range/Units 19:51 20:09 WBC 8.8 (4.8-10.8) X10*3/uL RBC 4.26 (4.20-5.50) X10*6/uL Hgb 14.1 (12.0-16.0) g/dl Hct 40.9 (37.0-47.0) % MCV 96.0 (80.0-98.0) fL MCH 33.1 H (27.0-33.0) pg MCHC 34.5 (31.0-35.0) g/dl RDW 12.6 (11.0-16.0) % Plt Count 259 (160-400) X10*3/uL MPV 9.5 (9.4-12.3) fL Immature Gran % (Auto) 0.3 (0.0-0.4) % Neut % (Auto) 64.2 (45-73) % Lymph % (Auto) 26.2 (20-40) % Richardson % (Auto) 7.4 (2-11) % Eos % (Auto) 1.6 (0-4) % Baso % (Auto) 0.3 (0-2) % Lymph # (Auto) 2.3 (1.2-4.9) X10*3/uL Richardson # (Auto) 0.7 (0.1-1.2) X10*3/uL Eos # (Auto) 0.1 (0.0-0.4) X10*3/uL Baso # (Auto) 0.0 (0.0-0.2) X10*3/uL Abs Immat Gran (auto) 0.03 (0.00-0.03) X10*3/uL Absolute Neuts (auto) 5.7 (2.0-8.3) x10*3/uL Absolute Nucleated RBC 0.000 (0.0-0.012) X10*3/uL Nucleated RBC % (auto) 0.0 (0.0-0.2) /100WBC Sodium 140 (135-145) mmol/L Potassium 4.4 (3.3-5.1) mmol/L Chloride 105 (96-108) mmol/L Carbon Dioxide 27 (22-29) mmol/L Anion Gap 12 (12-20) BUN 13 (9-16) mg/dL Creatinine 0.71 (0.5-1.4) mg/dL Estim Creat Clear Calc 103.3 Estimated GFR > 60 Random Glucose 104 (60-115) mg/dL Calcium 10.0 D (8.4-10.2) mg/dL Magnesium 1.8 (1.6-2.6) mg/dL Total Bilirubin 0.8 (0.0-1.0) mg/dL AST 29 (5-31) U/L ALT 19 (0-31) U/L Alkaline Phosphatase 89 (39-117) U/L Total Protein 7.7 (6.5-8.0) g/dL Albumin 4.6 (3.5-5.0) g/dL Lipase 26 (8-78) U/L Urine Color Yellow Urine Appearance Clear Urine pH 5.5 (5.0-9.0) Ur Specific [place]ch 1.020 (1.005-1.025) Urine Protein Negative (Neg-Trace) mg/dL Urine Glucose (UA) Negative (Negative) mg/dL Urine Ketones 15 (Negative) mg/dL Urine Blood Negative (Negative) Urine Nitrite Negative (Negative) Ur Leukocyte Esterase Negative (Negative) COVID-19 (SHIRA) Negative (Negative) COVID-19 Clin Com See Note Influenza Type A (JALIL) Negative (Negative) Influenza Type B (JALIL) Negative (Negative) Influenza A & B Note See Note Independent Historian Clinical information obtained from an independent historian. History obtained from or confirmed by: Spouse External Record Review External record reviewed: Inpatient record, Outpatient record and Prior outpatient radiology Prescription Management I considered prescription management with: Pain Medication and Other (Antiemetics) Chronic Conditions Patient?s care impacted by: Other (Hypothyroidism, choledocholithiasis) Discharge Plan Discharge Clinical Impression: Gastroenteritis, Choledocholithiasis Patient Disposition: Home, Self-Care Instructions: Gallstones (ED), Gastroenteritis (ED) Additional Instructions: Call your evening or night nurse supervisor later this morning. See if you can move up your appointment for your ERCP. Return to the emergency department with any new or worsening symptoms including: Worsening pain despite pain medications, inability to tolerate food or drink, fevers greater than 100?, any new symptom that concerns you. Call 911 with any medical emergency. Prescriptions: New metoclopramide HCl [Reglan] 10 mg tablet 10 mg PO Q6H PRN (Reason: nausea and vomiting) Qty: 10 0RF No Action celecoxib [Celebrex] 200 mg capsule 200 mg PO BID 30 Days Qty: 60 3RF tizanidine 2 mg tablet 2 mg PO BEDTIME tizanidine 4 mg tablet 4 mg PO BEDTIME PRN (Reason: Muscle Spasm) chlorzoxazone 500 mg tablet 500 mg PO TID PRN (Reason: headache) lorazepam 0.5 mg tablet 0.5 mg PO BID PRN (Reason: anxiety) duloxetine 30 mg capsule,delayed release(DR/EC) 30 mg PO DAILY Rx Instructions: TAKE WITH 60 MG CAPS FOR TOTAL OF 90 MG duloxetine 60 mg capsule,delayed release(DR/EC) 60 mg PO DAILY Rx Instructions: TAKE WITH 30 MG CAPS FOR TOTAL FOR 90 MG DAILY trazodone 100 mg Tablet 100 mg PO BEDTIME PRN (Reason: Insomnia) rlfhxxugdl-pyalxfxfcmxph-jqzz 50-325-40 mg tablet 1 tab PO Q6H PRN (Reason: haeadace) Qty: 20 0RF cephalexin 500 mg capsule 500 mg PO QID 10 Days Qty: 40 0RF doxycycline hyclate 100 mg tablet 100 mg PO BID Qty: 20 0RF ondansetron 4 mg tablet,disintegrating 4 mg PO Q6H PRN (Reason: nausea and vomiting) Qty: 10 0RF sucralfate 1 gram tablet 1 g PO Q6H PRN (Reason: abdominal pain) Qty: 60 0RF polyethylene glycol 3350 [ClearLax] 17 gram/dose powder 17 g PO DAILY PRN (Reason: constipation) gabapentin 400 mg capsule PO Print Language: Thai
[2025-06-25 19:55] LABS: MANUAL DIFF FLAG NO
[2025-06-25 19:56] LABS: Hematocrit 40.9 % (37.0-47.0); Hemoglobin 14.1 g/dl (12.0-16.0); Imm Gran Abs Auto 0.03 X10*3/uL (0.00-0.03); Imm Gran Pct Auto 0.3 % (0.0-0.4); Lymphocytes Absolute Auto 2.3 X10*3/uL (1.2-4.9); Mean Corpuscular HGB Conc 34.5 g/dl (31.0-35.0); Mean Corpuscular Hemoglobin 33.1 pg (27.0-33.0); Mean Corpuscular Volume 96.0 fL (80.0-98.0); NRBC Abs Auto 0.000 X10*3/uL (0.0-0.012); NRBC Pct Auto 0.0 /100WBC (0.0-0.2); Platelet Count 259 X10*3/uL (160-400); Red Blood Count 4.26 X10*6/uL (4.20-5.50); White Blood Count 8.8 X10*3/uL (4.8-10.8)
--- OUTSIDE RECORDS SUMMARY | 2025-06-25 20:06 | XMS_ITS | Clinical Summary ---
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 Name Role Phone Unavailable Primary Care Provider [...] HPV 1967 Tobacco Cessation Counseling (#1) 1967 Tobacco Screening 1967 HIV Screening 1982 Imm-Hepatitis B (1 of 3 - 19 + 3-dose series) 1986 Imm-Pneumococcal 50+ (1 of 2 - PCV) 1986 Cervical Cancer Screening 1988 Pap Smear 1988 Breast Cancer Screening (Mammogram) 2007 CT Colonography 2012 Colonoscopy 2012 Colorectal Cancer Screening 2012 FIT/gFOBT 2012 Fecal DNA 2012 Flexible Sigmoidoscopy 2012 Diabetes Screening 07/20/2023 07/20/2020, 06/14/2020 Alcohol and Drug Screen 10/12/2024 Depression Annual Screen 10/12/2024 TSH Monitoring 04/22/2025 04/22/2024 [id number] ( season) 2025 07/25/2022, 12/09/2021, 12/05/2020, Additional history exists Imm-Influenza (#1) 2025 06/29/2023, 1 , 07/17/2020, Additional history exists Hypertension Screening (#1) 06/14/2025 Lipid Screening 04/16/2028 04/16/2023 Imm-DTaP/Tdap/Td (3 - Td or Tdap) 06/29/2033 023, 11/22/2012 Imm-Zoster, Recombinant Completed 09/09/2021, 09/19 Hepatitis C Screening Completed 12/09/2021 Cervical Ablation/Cold-Knife Conization Discontinued Cervical Cryotherapy Discontinued Colposcopy Discontinued Endometrial Biopsy Discontinued Excision/Leep Discontinued HPV Genotyping Discontinued Vaginal Pap Discontinued Vulvoscopy Discontinued Insurance [facility] Member Subscriber Plan / Payer (Ef fective 2023-Present) Name:Gaudencio Grecoisamar Relation to Subscriber:Self Name:Rafiq Greco Payer ID:[id number] Group ID:Not on file Type:Medicaid Address: [place] [address] [place] [address]
[2025-06-25 20:11] LABS: COVID-19 Test Negative (Negative); IDNOW Serial# 58CA691E
[2025-06-25 20:13] LABS: Alanine Aminotransferase 19 U/L (0-31); Albumin Level 4.6 g/dL (3.5-5.0); Alkaline Phosphatase 89 U/L (39-117); Anion Gap 12 (12-20); Aspartate Amino Transferase 29 U/L (5-31); Blood Urea Nitrogen 13 mg/dL (9-16); Calcium 10.0 mg/dL (8.4-10.2); Carbon Dioxide 27 mmol/L (22-29); Chloride 105 mmol/L (96-108); Creatinine Clr Calc Pharmacy 103.3; Estimated Glomerular Filt Rate > 60; IDNOW Serial# 55D5AD1C; Influenza B2 Negative (Negative); Lipase 26 U/L (8-78); Magnesium 1.8 mg/dL (1.6-2.6); Potassium 4.4 mmol/L (3.3-5.1); Sodium 140 mmol/L (135-145); Total Protein 7.7 g/dL (6.5-8.0)
[2025-06-25 20:16] LABS: Appearance Urine Clear; Glucose Urine UA Negative (Negative); PH 5.5 (5.0-9.0); Specific Gravity - Urine 1.020 (1.005-1.025)
[2025-06-26 02:15] VITALS: BP 142/96; PULSE 75; RESP 16; TEMP 36.7; O2SAT 100
== END 2025-06-26 02:16 | disposition home or self-care (01) ==
PROVIDERS: Physician Assistant Medical; Emergency Provider Emergency Medicine
DX: K52.9 Noninfective gastroenteritis and colitis, unspecified (principal); K80.50 Calculus of bile duct without cholangitis or cholecystitis without obstruction; R11.0 Nausea; Z11.52 Encounter for screening for COVID-19; Z79.899 Other long term (current) drug therapy
CPT/HCPCS: 80053; 81003; 83690; 83735; 85025; 87502; 87635; 96361; 96374; 96375; 99284; 99285; J1200; J1790; J1885; J2765